=== PATIENT | female | born 1960 | race Caucasian/White ===

== ENCOUNTER 2021-07-31 05:44 | Emergency (ER) | payer OTHER, SELFPAY ==
[2021-07-31 05:53] VITALS: BP 166/87; PULSE 73; RESP 16; TEMP 36.4; O2SAT 95; BMI 34.9
--- NOTE | 2021-07-31 06:12 | XRR_ITS ---
PROCEDURE INFORMATION: Exam: XR Chest Exam date and time: 07/31/2021 6:22 AM Age: 60 years old Clinical indication: Chest pain/pressure. TECHNIQUE: Imaging protocol: XR of the chest. Views: 1 view. COMPARISON: No relevant prior studies available. FINDINGS: Lungs: There is bulging at the right hilum with fullness of the right hilum. No pulmonary consolidation. Pleural spaces: No pleural effusion. No pneumothorax. Heart/Mediastinum: The cardiac silhouette is prominent which may be exaggerated by AP technique. No gross evidence of pneumomediastinum. Vasculature: Tortuous aorta. Bones/joints: No gross fracture. XR/XR chest 1V portable [id number] IMPRESSION: 1. Bulging at the right hilum with fullness of the right hilum. Recommend CT chest with contrast further assess. 2. The cardiac silhouette is prominent which may be exaggerated by AP technique.
--- NOTE | 2021-07-31 06:12 | ECG_ITS ---
[facility] Test Date: 2021-07-31 Pat Name: Emilee Lim Department: Room: Gender: Female Peripatologist: : 1960 Requested By: Mikhail Schwab Order Number: [id number] Radha MD: Betito Gutiérrez M.D. Measurements Intervals [place] Rate: 73 P: 41 [place]: 159 QRS: 22 QRSD: 81 T: 41 QT: 362 QTc: 401 Interpretive Statements SINUS RHYTHM No previous ECG available for comparison Electronically Signed On 07-31-2021 9:23:26 CDT by Betito Gutiérrez M.D. [email or web address] MD/store/[id number] f
[2021-07-31 06:20] LABS: Basophils # 0.1 10^3/uL (0.0-0.1); Basophils % 0.8 %; Eosinophils # 0.3 10^3/uL (0.0-0.8); Eosinophils % 3.5 %; Hematocrit 45.8 % (37.0-47.0); Hemoglobin 15.3 g/dL (11.5-15.3); Lymphocytes # 2.6 10^3/uL (0.8-4.8); Lymphocytes % 32.7 %; Mean Corpuscular HGB Conc 33.4 g/dL (30.0-36.0); Mean Corpuscular Hemoglobin 28.9 pg (28.0-34.0); Mean Corpuscular Volume 86.6 fl (81-99); Mean Platelet Volume 8.8 fL (7.4-10.4); Monocytes # 0.6 10^3/uL (0.2-0.9); Monocytes % 7.6 %; Neutrophils # 4.36 10^3/uL (1.8-7.7); Neutrophils % 55.1 %; Nucleated Red Blood Cells % 0 %; Platelet Count 305 10^3/cmm (130-400); Red Blood Count 5.29 10^6/uL (4.1-5.3); Red Cell Distribution Width 12.9 % (12.1-15.1); White Blood Count 7.9 10^3/uL (4.0-10.0)
[2021-07-31 06:32] LABS: Troponin(5th) Baseline 6 ng/L (0-10)
[2021-07-31 06:38] LABS: Alanine Aminotransferase 17 U/L (0-33); Albumin Level 4.4 g/dL (3.5-5.2); Alkaline Phosphatase 87 IU/L (35-105); Anion Gap 13.6 (5-19); Aspartate Amino Transferase 19 U/L (0-32); Blood Urea Nitrogen 18 mg/dL (8-23); Carbon Dioxide 27 mmol/L (22-29); Chloride 101 mmol/L (98-107); Creatine Phosphokinase 88 U/L (26-192); Glomerular Filtration Rate 73.2 mL/min (90-130); Glucose 101 mg/dL (65-115); NT Pro B Type Natriuretic Pept 12 pg/mL (0-125); Osmolality Calculated 288 mOsm/kg (285-295); Potassium 3.6 mmol/L (3.5-5.1); Sodium 138 mmol/L (136-145); Total Bilirubin 0.3 mg/dL (0.15-1.2); Total Protein 7.4 g/dL (6.6-8.7)
[2021-07-31 07:13] VITALS: BP 128/87; PULSE 76; RESP 15; O2SAT 96
--- NOTE | 2021-07-31 07:31 | CTR_ITS ---
PROCEDURE INFORMATION: Exam: CTA Chest With Contrast Exam date and time: 07/31/2021 7:53 AM Age: 60 years old Clinical indication: Chest pain/pressure. TECHNIQUE: Imaging protocol: Computed tomographic angiography of the chest with contrast. 3D rendering (Not supervised by radiologist): MIP and/or 3D reconstructed images were created by the technologist. Radiation optimization: All CT scans at this facility use at least one of these dose optimization techniques: automated exposure control; mA and/or kV adjustment per patient size (includes targeted exams where dose is matched to clinical indication); or iterative reconstruction. Contrast material: OMNI 350; Contrast volume: 72 ml; Contrast route: INTRAVENOUS (IV); COMPARISON: CR (CHEST, ) 07/31/2021 6:22 AM RADIATION DOSE METRICS: Total DLP (mGy-cm): 552.93 FINDINGS: Pulmonary arteries: The main pulmonary artery is enlarged measuring 4 cm; query pulmonary arterial hypertension. Motion artifact compromises assessment for pulmonary embolus. No main, central or lobar pulmonary embolus. Aorta: No thoracic aortic aneurysm. No thoracic aortic dissection. Lungs: Mild bronchial wall thickening at the lung bases. Mild centrilobular emphysema. No pulmonary consolidation. There is mild scarring and/or atelectasis, bilaterally. Solid fissural nodule on the left measuring 2.6 mm (image 205). Separate small fissural nodule on the left measuring 2 mm (image 224). Pleural spaces: No pleural effusion. No pneumothorax. Heart: Heart is enlarged. No pericardial effusion. Lymph nodes: A right hilar lymph node measures 1.3 x 1.8 cm. A left hilar lymph node measures 1.3 x 1.5 cm. A subcarinal lymph node measures 1.0 x 1.4 cm. There are small calcified bilateral hilar lymph nodes. Diaphragm: No hiatal hernia. Upper abdomen: Intermediate density left renal lesion measuring 2.4 cm. This may represent a complex cyst. A periportal lymph node measures 1.5 x 1.0 cm. Bones/joints: No acute fracture is identified. Soft tissues: No subcutaneous soft tissue swelling. CT/CT angio chest PE protcl [id number] IMPRESSION: 1. Motion artifact compromises assessment for pulmonary embolus. No main, central or lobar pulmonary embolus. 2. No thoracic aortic aneurysm. No thoracic aortic dissection. 3. Mild peribronchial wall thickening; query viral infection/bronchitis, chronic bronchitis and/or asthma. 4. Solid fissural nodules measure up to 2.6 mm. As per Fleischner Society 2017 guidelines for follow-up and management of pulmonary nodules: For patients at low risk (minimal or absent history of smoking and of other known risk factors), no routine follow-up. For patient at high risk (history of smoking or of other known risk factors), recommend optional CT at 12 months. 5. Intermediate density left renal lesion. This may represent a complex cyst. Recommend nonemergent ultrasound to exclude a solid renal lesion. 6. Mild mediastinal, bilateral hilar and periportal lymphadenopathy. 7. Mild centrilobular emphysema. 8. Cardiomegaly. COMMENTS: Consistent with the [employer]'s Incidental Findings Committee white paper (J Am Chris Radiol 2018): Any incidental renal lesion less than 1 cm or classified as too small to characterize, or any incidental cystic renal lesion characterized as simple-appearing, is likely benign. No follow-up imaging is recommended for these lesions per consensus recommendations based on imaging criteria.
--- NOTE | 2021-07-31 07:32 | ED_ITS ---
HPI - Chest Pain General: Chief Complaint: Chest Pain Stated Complaint: chest pressure Time Seen by Provider: 07/31/21 06:12 Source: patient Mode of arrival: ambulatory Limitations: no limitations History of Present Illness: 60-year-old female states she is denies any cough denies any shortness of breath denies any fever denies any nausea or diaphoresis. Chest pain since 4:00 this morning. She states that started suddenly with a sharp pain in the center of her chest that also radiated to her back. She states she had a couple pains like this before and they have all resolved. States that this pain is improved and is currently 2 out of 10. Associated symptoms: Deny abdominal pain, dyspnea, fever(s), nausea or vomiting Review of Systems Const: Denies: fever(s), chills, body aches or change in appetite Eyes: Denies: blurry vision or eye discomfort ENMT: Denies: throat pain or dental pain Card: Reports: chest pain Resp: Denies: dyspnea GI: Denies: abdominal pain, nausea, vomiting or diarrhea : Denies: dysuria Musc: Denies: neck pain or back pain Skin/Breast: Denies: rash Neuro: Denies: headache(s) Psych: Denies: depression [place]/Lymph: Denies: easy bruising All/Imm: Denies: urticaria PFSH ED PFSH: Medical History Anxiety Fatigue Social History Smoking and tobacco status: former smoker Female Reproductive History: Spontaneous abortions: No Physical Exam Const: COMMON NORMALS: no acute distress, patient oriented x3 and healthy appearing HENMT: COMMON NORMALS: normocephalic and atraumatic HEAD & SCALP: normocephalic and atraumatic Eye: COMMON NORMALS: Equal, round and reactive pupils present and EOMs intact bilaterally PUPIL: Yes Equal, round and reactive pupils present Neck/C-Spine: COMMON NORMALS: full ROM and supple Chest: COMMONS NORMALS: normal inspection of the chest and normal palpation of entire chest wall Resp: COMMON NORMALS: normal respiratory effort, No retractions, No use of accessory muscles and clear to auscultation bilaterally AUSCULTATION: clear to auscultation bilaterally Cardio: COMMON NORMALS: regular rate, regular rhythm and No murmurs present (Cardio) RATE: regular rate RHYTHM: regular rhythm GI: COMMON NORMALS: Normal to inspection, nondistended, normoactive bowel sounds present, Soft to palpation, non-tender and no masses PALPATION: Yes Soft to palpation Extremity: COMMON NORMALS: normal to inspection and full ROM Neuro: COMMON NORMALS: patient oriented x3, moves all extremities and no focal motor deficits Psych: COMMON NORMALS: mental status grossly normal, Normal thought process present and cooperative THOUGHT PROCESS: Normal thought process present Skin: COMMON NORMALS: no rashes or lesions noted and no wounds GENERAL SKIN EXAM: no rashes or lesions noted Course Vital Signs: Vital signs: Vital Signs Temperature 97.5 F L 07/31/21 05:53 Pulse Rate 86 07/31/21 09:37 Respiratory Rate 20 H 07/31/21 09:37 Blood Pressure 123/77 07/31/21 09:37 Pulse Oximetry 94 07/31/21 09:37 MDM - Chest Pain Medical Decision Making Patient presents for chest pain is atypical in nature her troponins here are negative patient CT scan is negative as well. She feels improved has no pain here she is stable for discharge is to follow-up with PCP and return if worsening she understands and agrees to plan. Lab Data : 07/31/21 06:05 07/31/21 06:05 Radiology Impressions Chest X-Ray 07/31/21 06:12 IMPRESSION: 1. Bulging at the right hilum with fullness of the right hilum. Recommend CT chest with contrast further assess. 2. The cardiac silhouette is prominent which may be exaggerated by AP technique. Chest CTA 07/31/21 07:31 IMPRESSION: 1. Motion artifact compromises assessment for pulmonary embolus. No main, central or lobar pulmonary embolus. 2. No thoracic aortic aneurysm. No thoracic aortic dissection. 3. Mild peribronchial wall thickening; query viral infection/bronchitis, chronic bronchitis and/or asthma. 4. Solid fissural nodules measure up to 2.6 mm. As per Fleischner Society 2017 guidelines for follow-up and management of pulmonary nodules: For patients at low risk (minimal or absent history of smoking and of other known risk factors), no routine follow-up. For patient at high risk (history of smoking or of other known risk factors), recommend optional CT at 12 months. 5. Intermediate density left renal lesion. This may represent a complex cyst. Recommend nonemergent ultrasound to exclude a solid renal lesion. 6. Mild mediastinal, bilateral hilar and periportal lymphadenopathy. 7. Mild centrilobular emphysema. 8. Cardiomegaly. COMMENTS: Consistent with the [employer]'s Incidental Findings Committee white paper (J Am Chris Radiol 2018): Any incidental renal lesion less than 1 cm or classified as too small to characterize, or any incidental cystic renal lesion characterized as simple-appearing, is likely benign. No follow-up imaging is recommended for these lesions per consensus recommendations based on imaging criteria. Laboratory Results WBC 7.9 10^3/uL (4.0-10.0) 07/31/21 06:05 RBC 5.29 10^6/uL (4.1-5.3) 07/31/21 06:05 Hgb 15.3 g/dL (11.5-15.3) 07/31/21 06:05 Hct 45.8 % (37.0-47.0) 07/31/21 06:05 MCV 86.6 fl (81-99) 07/31/21 06:05 MCH 28.9 pg (28.0-34.0) 07/31/21 06:05 MCHC 33.4 g/dL (30.0-36.0) 07/31/21 06:05 RDW 12.9 % (12.1-15.1) 07/31/21 06:05 Plt Count 305 10^3/cmm (130-400) 07/31/21 06:05 MPV 8.8 fL (7.4-10.4) 07/31/21 06:05 Neut % (Auto) 55.1 % 07/31/21 06:05 Lymph % (Auto) 32.7 % 07/31/21 06:05 [place] % (Auto) 7.6 % 07/31/21 06:05 Eos % (Auto) 3.5 % 07/31/21 06:05 Baso % (Auto) 0.8 % 07/31/21 06:05 Neut # (Auto) 4.36 10^3/uL (1.8-7.7) 07/31/21 06:05 Lymph # (Auto) 2.6 10^3/uL (0.8-4.8) 07/31/21 06:05 [place] # (Auto) 0.6 10^3/uL (0.2-0.9) 07/31/21 06:05 Eos # (Auto) 0.3 10^3/uL (0.0-0.8) 07/31/21 06:05 Baso # (Auto) 0.1 10^3/uL (0.0-0.1) 07/31/21 06:05 Nucleated RBC % (auto) 0 % 07/31/21 06:05 Nucleated RBCs # 0.0 /100WBC 07/31/21 06:05 Sodium 138 mmol/L (136-145) 07/31/21 06:05 Potassium 3.6 mmol/L (3.5-5.1) 07/31/21 06:05 Chloride 101 mmol/L (98-107) 07/31/21 06:05 Carbon Dioxide 27 mmol/L (22-29) 07/31/21 06:05 Anion Gap 13.6 (5-19) 07/31/21 06:05 BUN 18 mg/dL (8-23) 07/31/21 06:05 Creatinine 0.8 mg/dL (0.5-0.9) 07/31/21 06:05 GFR Calculation 73.2 mL/min (90-130) L 07/31/21 06:05 Glucose 101 mg/dL (65-115) 07/31/21 06:05 Calculated Osmolality 288 mOsm/kg (285-295) 07/31/21 06:05 Calcium 9.0 mg/dL (8.5-10.5) 07/31/21 06:05 Total Bilirubin 0.3 mg/dL (0.15-1.2) 07/31/21 06:05 AST 19 U/L (0-32) 07/31/21 06:05 ALT 17 U/L (0-33) 07/31/21 06:05 Alkaline Phosphatase 87 IU/L (35-105) 07/31/21 06:05 Creatine Kinase 88 U/L (26-192) 07/31/21 06:05 Troponin T Baseline 6 ng/L (0-10) 07/31/21 06:05 Troponin T 120 Minute 6.00 ng/L (0-10) 07/31/21 08:19 Delta Troponin T 0 ABS# (0-10) 07/31/21 08:19 NT-Pro-B Natriuret Pep 12 pg/mL (0-125) 07/31/21 06:05 Total Protein 7.4 g/dL (6.6-8.7) 07/31/21 06:05 Albumin 4.4 g/dL (3.5-5.2) 07/31/21 06:05 Globulin 3.0 g/dL (1.3-4.6) 07/31/21 06:05 EKG Data EKG 1: I personally reviewed and interpreted this EKG as follows: EKG interpretation date: 07/31/21 EKG interpretation time: 05:57 Interpretation: nsr hr [address] or t wave abnormalities qrs 81 qtc 388 EKG 2: I personally reviewed and interpreted this EKG as follows: EKG interpretation date: 07/31/21 EKG interpretation time: 08:34 Interpretation: nsr hr [address] or t wave abnormalities qrs 78 qtc 375 Discharge Plan Discharge Patient Disposition: Home Clinical Impression: Chest pain Condition: Stable Prescriptions: No Action alprazolam [Xanax] 0.5 mg tablet 0.25 mg PO TID 0RF hydrochlorothiazide 12.5 mg tablet 12.5 mg PO DAILY 0RF multivitamin Tablet 1 tab PO DAILY 0RF magnesium 30 mg tablet 30 mg PO DAILY PRN0RF Discharge Orders: Discharge ED (Routine); Ordered 07/31/21 Ordered By: Miky Lopez Referrals: Betito Gutiérrez MD [Physician] - 1-3 days Discharge Diet: Advance as tolerated Discharge Activity: Resume usual activity Patient Instructions: Chest Pain (ED) Coding Level of Care Code ED Ballast Regulator Operator for Chg Fwd Exam Comprehensive
[2021-07-31] MEDS: iohexol 350 mg/mL 100 mL Btl IV (07:53)
[2021-07-31 08:00] VITALS: BP 134/75; PULSE 81; RESP 17; O2SAT 95
--- NOTE | 2021-07-31 08:12 | ECG_ITS ---
[facility] Test Date: 2021-07-31 Pat Name: Emilee Lim Department: Room: Gender: Female Jr. Java Developer: : 1960 Requested By: Mikhail Schwab Order Number: [id number] Radha MD: Betito Gutiérrez M.D. Measurements Intervals [place] Rate: 72 P: 60 [place]: 165 QRS: 43 QRSD: 78 T: 49 QT: 351 QTc: 385 Interpretive Statements SINUS RHYTHM Compared to ECG 07/31/2021 05:57:51 No significant changes Electronically Signed On 07-31-2021 9:30:44 CDT by Betito Gutiérrez M.D. [id number]
--- NOTE | 2021-07-31 08:33 | PC.NURSE ---
PT placed on continuous NIBP, SpO2, and CM
--- NOTE | 2021-07-31 08:37 | PC.NURSE ---
EKG done at 0835 and shown to ER doctor
[2021-07-31 09:00] VITALS: BP 123/77; PULSE 82; RESP 14; O2SAT 92
[2021-07-31 09:21] LABS: Troponin 5 2HR Delta 0 ABS# (0-10)
[2021-07-31 09:37] VITALS: BP 123/77; PULSE 86; RESP 20; O2SAT 94
--- NOTE | 2021-08-01 13:37 | DCPLANNER ---
Addendum entered by Sandra Wyatt 08/04/21 15:28: Patient had a follow up appointment scheduled for 08.03.[address] Mcclure - patient did attend appointment. Dr. Gutiérrez is not taking new patients. Original Note: patient manager had message to schedule a follow up appointment for patient with cardiology. patient manager sent patients information to the front office staff at [facility]. Patients information will be printed and reviewed. Clinic will call patient with appointment information.
== END 2021-07-31 09:39 | disposition home or self-care (01) ==
PROVIDERS: Emergency Medicine; Emergency Provider Emergency Medicine
DX: R07.9 Chest pain, unspecified (principal)
CPT/HCPCS: 36415; 71045; 71275; 80053; 82550; 83880; 84484; 85025; 93005; 99284; Q9967

== ENCOUNTER → 2022-04-07 17:10 | Outpatient (BNVA) | payer OTHER, SELFPAY | PROVIDERS: Visit Provider Nurse Practitioner Family | DX: N39.41 Urge incontinence (principal); R00.0 Tachycardia, unspecified; R69 Illness, unspecified; N10 Acute pyelonephritis | CPT/HCPCS: 81000; 87400 ==

== ENCOUNTER → 2022-04-14 14:18 | Outpatient (BNVA) | payer OTHER, SELFPAY | PROVIDERS: Visit Provider Emergency Medicine | DX: N30.00 Acute cystitis without hematuria (principal); J98.8 Other specified respiratory disorders; B97.89 Other viral agents as the cause of diseases classified elsewhere | CPT/HCPCS: 81000; 87086 ==

== ENCOUNTER → 2022-07-31 17:28 | Outpatient (BNVA) | payer OTHER, SELFPAY | PROVIDERS: Visit Provider Nurse Practitioner Family | DX: N39.0 Urinary tract infection, site not specified (principal); R35.89 Other polyuria; N12 Tubulo-interstitial nephritis, not specified as acute or chronic | CPT/HCPCS: 81000; 83036; 87086 ==

== ENCOUNTER → 2023-11-15 08:45 | Outpatient (BNVA) | payer OTHER, SELFPAY | PROVIDERS: Visit Provider Nurse Practitioner | DX: N39.0 Urinary tract infection, site not specified (principal); R30.0 Dysuria | CPT/HCPCS: 81000; 87086 ==

== ENCOUNTER 2024-05-05 12:05 | Emergency (ER) | payer OTHER, SELFPAY ==
[2024-05-05] VITALS (38 sets, daily range): BP systolic 123–152; BP diastolic 74–103; PULSE 96–109; RESP 12–28; TEMP 36.3; O2SAT 89–97; BMI 42.7
--- NOTE | 2024-05-05 12:14 | ECG_ITS ---
[facility] Pat Name: Emilee Lim Department: Room: Gender: Female Account Development Specialist: : 1960 Requested By: Emmy Pereira Order Number: [id number] Reading MD: CLAU RODRIGUEZ Measurements Intervals [place] Rate: 109 P: 35 TN: 155 QRS: 19 QRSD: 79 T: 49 QT: 327 QTc: 442 Interpretive Statements SINUS TACHYCARDIA WITH OCCASIONAL ECTOPIC PREMATURE COMPLEXES POSSIBLE LEFT ATRIAL ENLARGEMENT [-0.1mV P-WAVE IN V1/V2] LOW QRS VOLTAGE IN PRECORDIAL LEADS [QRS DEFLECTION < 1.0 mV IN CHEST LEADS] POSSIBLE ANTERIOR MYOCARDIAL INFARCTION , OF INDETERMINATE AGE [30 ms Q WAVE IN V3/V4, OR R < 0.2 mV IN V4] Compared to ECG 07/31/2021 08:34:53 Low QRS voltage now present Myocardial infarct finding now present Sinus rhythm no longer present Electronically Signed On 05-05-2024 22:20:47 CDT by CLAU RODRIGUEZ [id number]
--- NOTE | 2024-05-05 13:42 | W.ED.ABDPA2 ---
HPI - Abdominal Pain General: Chief Complaint: Abdominal Pain Stated Complaint: rapid hr,shoulder pain,abd pain Time Seen by Provider: 05/05/24 13:01 Source: patient Mode of arrival: wheelchair Limitations: no limitations History of Present Illness: 63-year-old female presents to the ER complaining of abdominal pain, nausea, vomiting. Patient states she started having episodes of vomiting with bile last night and has unable to keep down any foods or liquids. She states she has been dealing with GI issues for the past 10 years now and will get stomach discomforts after eating certain foods but not the nausea/vomiting. She describes frequent episodes at night lasting 30 mins or so. Previous abdominal surgeries include uterine ablation, open exploratory surgery with appendectomy. She reports having palpitations last night while sleeping which has improved today. Patient reports pain radiating to back/shoulder blades. Has had one episode previously of idiopathic pancreatitis. Patient reports she has not taking her blood pressure medications yesterday or today. Patient denies fever, chills, dizziness, chest pain, shortness of breath. Denies excessive etoh/NSAIDs. Denies marijuana use. MD elicited complaint: abdominal pain Onset (ago): day(s) Pain Consistency: constant Location: Epigastric, LUQ and RUQ Severity: moderate Quality: dull Radiation: epigastric Exacerbating factors: eating Relieving factors: nothing Associated Symptoms: Reports dyspepsia, heartburn, nausea, poor appetite and vomiting ( Bile like vomit ); Denies change in bowel habits, chills, constipation, GI cramping, diarrhea, fever(s), hematochezia, hematuria, hematemesis and syncope Related Data Home Medications ?Medication ?Instructions ?Recorded ?Confirmed hydrochlorothiazide 12.5 mg tablet 12.5 mg PO DAILY 07/12/21 05/05/24 multivitamin 1 tab PO DAILY 07/12/21 05/05/24 cyanocobalamin 2 mg-levomefolate 1 tab PO DAILY 05/05/24 05/05/24 [place] 1.13 mg-pyridoxine 25 mg tablet trospium 60 mg capsule,extended 60 mg PO DAILY 05/05/24 05/05/24 release 24 hr Previous Rx's ?Medication ?Instructions ?Recorded ondansetron 4 mg disintegrating 4 mg PO Q8H PRN nausea and 05/05/24 tablet vomiting #14 tabs pantoprazole 40 mg tablet,delayed 40 mg PO DAILY 4 weeks #28 tabs 05/05/24 release (Protonix) sucralfate 1 gram tablet (Carafate) 1 g PO TID 2 weeks #42 tabs 05/05/24 Allergies Allergy/AdvReac Type Severity Reaction Status Date / Time montelukast (From [facility]) Allergy unnknow Verified 05/05/24 12:20 Penicillins Allergy Unknown Verified 05/05/24 12:20 antibiotics Allergy Unknown Uncoded 05/05/24 12:20 antidepressants Allergy Unknown Uncoded 05/05/24 12:20 steroid packs Allergy Unknown Uncoded 05/05/24 12:20 Review of Systems Const: Reports: change in appetite (Decrease in appetite); Denies: fever(s), chills or body aches Eyes: Denies: change in vision or blurry vision Card: Reports: palpitations; Denies: chest pain, irregular heart rhythm, edema, swelling of feet/ankles, lightheadedness, syncope, pre-syncope, dyspnea on exertion or orthopnea Resp: Denies: dyspnea, productive cough, non-productive cough or wheezing GI: Reports: abdominal pain, nausea, vomiting ( Bile like vomit ) and heartburn; Denies: hematemesis, diarrhea, constipation, GI cramping, change in bowel habits, pain on defecation or hematochezia : Denies: flank pain or hematuria Musc: Reports: back pain ( Pain between my shoulder blades ); Denies: neck pain, extremity pain, extremity swelling, joint pain, joint swelling, joint redness, joint warmth, joint stiffness, limited range of motion, muscle cramps or muscle weakness Skin/Breast: Denies: rash Neuro: Denies: headache(s) or dizziness PFS ED PFSH: Medical History Anxiety Fatigue Family History Mother Anesthesia complication Lung disease Father Bleeding disorder CAD (coronary artery disease) Diabetes Family/Other CAD (coronary artery disease) Cancer Chronic kidney disease (CKD) Stroke Suicide Diabetes Grandfather Dementia Denies family history of Clotting disorder Social History Smoking and tobacco/nicotine status: former use of tobacco/nicotine (quit 20 years ago) Female Reproductive History: Spontaneous abortions: No Physical Exam Const: COMMON NORMALS: no acute distress, average body habitus, patient oriented x3, no limitations, healthy appearing, alert and well nourished GENERAL APPEARANCE: cooperative ORIENTATION/CONSCIOUSNESS: Yes awake, Yes oriented to person, Yes oriented to place and Yes oriented to time Eye: COMMON NORMALS: no scleral icterus Neck/C-Spine: COMMON NORMALS: no lymphadenopathy Resp: COMMON NORMALS: clear to auscultation bilaterally EFFORT & INSPECTION: Yes able to speak in complete sentences AUSCULTATION: clear to auscultation bilaterally Cardio: COMMON NORMALS: regular rate and regular rhythm RATE: regular rate RHYTHM: regular rhythm GI: COMMON NORMALS: Normal to inspection, nondistended, normoactive bowel sounds present, Soft to palpation, No hepatosplenomegaly present and no masses INSPECTION: Yes normal to inspection AUSCULTATION: Yes Hypoactive bowel sounds present PALPATION: Yes Soft to palpation, Yes Tenderness to palpation present (GI) (tenderness across upper abdomen ) Details: RUQ, No Guarding due to palpation present (GI), No Rigid due to palpation and Yes No hepatosplenomegaly present : COMMON NORMALS: Yes no CVA tenderness BLADDER/KIDNEY EXAM: Yes no CVA tenderness Back/Pelvis: COMMON NORMALS: no CVA tenderness Extremity: COMMON NORMALS: normal to inspection, full ROM and no joint enlargement Neuro: COMMON NORMALS: patient oriented x3 SENSORIUM/ORIENTATION: Yes alert, Yes oriented to person, Yes oriented to place and Yes oriented to time Skin: COMMON NORMALS: no rashes or lesions noted GENERAL SKIN EXAM: no rashes or lesions noted Course Vital Signs: Vital signs: Vital Signs Temperature 97.3 F L 05/05/24 12:09 Pulse Rate 105 H 05/05/24 15:45 Respiratory Rate 16 05/05/24 15:45 Blood Pressure 130/85 05/05/24 15:45 Pulse Oximetry 97 05/05/24 15:45 Oxygen Delivery Me thod Room Air 05/05/24 14:05 MDM - Abdominal Pain Medical Decision Making Patient here for abdominal pain, nausea, vomiting. Patient was given antiemetic here and successfully held down a GI cocktail as well as ice chips, Sprite, and crackers following this. She has not had any episodes of vomiting while here. Blood work showing hypokalemia at 2.7. She was given IV and oral potassium replacement here. Her magnesium is 2.5. Recommending she have potassium rechecked outpatient later this week. CT scan findings compatible with a nonspecific gastritis or peptic ulcer disease. I will have case management set her up with outpatient GI/general surgery for evaluation for an endoscopy. She will be placed on Carafate, PPI, Zofran for her nausea and vomiting. She was encouraged to return to the emergency department for worsening pain, continued nausea or vomiting, or any other concerns she may have. Did discuss dietary restrictions and provided handouts. Medical Records I reviewed the patient's medical records. Lab Data I reviewed the patient's lab results. 05/05/24 13:33 05/05/24 13:33 Labs/Radiology: Radiology Impressions Abdomen/Pelvis CT 05/05/24 14:05 IMPRESSION: 1. Findings compatible with a nonspecific gastritis or peptic ulcer disease. Consider follow-up outpatient GI evaluation/endoscopy to exclude an underlying lesion. Laboratory Results WBC 15.22 10^3/uL (3.29-11.43) H 05/05/24 13:33 RBC 6.30 10^6/uL (3.85-5.65) H 05/05/24 13:33 Hgb 17.50 g/dL (11.27-16.99) H 05/05/24 13:33 Hct 53.2 % (36-47) H 05/05/24 13:33 MCV 84.4 fl (85-98) L 05/05/24 13:33 MCH 27.8 pg (27-33) 05/05/24 13:33 MCHC 32.9 g/dL (30-55) 05/05/24 13:33 RDW 13.2 % (12.1-15.1) 05/05/24 13:33 Plt Count 388 10^3/cmm (157-399) 05/05/24 13:33 MPV 8.8 fL (7.4-10.4) 05/05/24 13:33 Neut % (Auto) 82.3 % 05/05/24 13:33 Lymph % (Auto) 10.6 % 05/05/24 13:33 [place] % (Auto) 6.4 % 05/05/24 13:33 Eos % (Auto) 0.1 % 05/05/24 13:33 Baso % (Auto) 0.2 % 05/05/24 13:33 Neut # (Auto) 12.53 10^3/uL (1.8-7.7) H 05/05/24 13:33 Lymph # (Auto) 1.6 10^3/uL (0.8-4.8) 05/05/24 13:33 [place] # (Auto) 1.0 10^3/uL (0.2-0.9) H 05/05/24 13:33 Eos # (Auto) 0.0 10^3/uL (0.0-0.8) 05/05/24 13:33 Baso # (Auto) 0.0 10^3/uL (0.0-0.1) 05/05/24 13:33 Nucleated RBC % (auto) 0 % 05/05/24 13:33 Nucleated RBCs # 0.0 /100WBC 05/05/24 13:33 Sodium 140 mmol/L (136-145) 05/05/24 13:33 Potassium 2.7 mmol/L (3.5-5.1) L* 05/05/24 13:33 Chloride 86 mmol/L (98-107) L 05/05/24 13:33 Carbon Dioxide 38 mmol/L (22-29) H 05/05/24 13:33 Anion Gap 18.7 (5-19) 05/05/24 13:33 BUN 38 mg/dL (8-23) H 05/05/24 13:33 Creatinine 1.0 mg/dL (0.5-0.9) H 05/05/24 13:33 GFR Calculation 56.0 mL/min (90-130) L 05/05/24 13:33 Glucose 136 mg/dL (65-115) H 05/05/24 13:33 Calculated Osmolality 301 mOsm/kg (285-295) H 05/05/24 13:33 Calcium 9.8 mg/dL (8.5-10.5) 05/05/24 13:33 Magnesium 2.5 mg/dL (1.7-2.3) H 05/05/24 13:33 Total Bilirubin 0.5 mg/dL (0.15-1.2) 05/05/24 13:33 AST 17 U/L (0-32) 05/05/24 13:33 ALT 19 U/L (0-33) 05/05/24 13:33 Alkaline Phosphatase 103 U/L (35-105) 05/05/24 13:33 Troponin T Baseline 10 ng/L (0-10) 05/05/24 13:33 Total Protein 8.4 g/dL (6.6-8.7) 05/05/24 13:33 Albumin 4.7 g/dL (3.5-5.2) 05/05/24 13:33 Globulin 3.7 g/dL (1.3-4.6) 05/05/24 13:33 Lipase 38 U/L (13-60) 05/05/24 13:33 Urine Color Dark yellow (Yellow) A 05/05/24 13:30 Urine Appearance Slightly cloudy (CLEAR) 05/05/24 13:30 Urine pH (5-7) 05/05/24 13:30 Ur Specific [place] Not Reportable 05/05/24 13:30 Urine Protein Not Reportable 05/05/24 13:30 Urine Glucose (UA) Not Reportable 05/05/24 13:30 Urine Ketones Not Reportable 05/05/24 13:30 Urine Blood Not Reportable 05/05/24 13:30 Urine Nitrate Not Reportable 05/05/24 13:30 Urine Bilirubin Not Reportable 05/05/24 13:30 Urine Urobilinogen Not Reportable 05/05/24 13:30 Ur Leukocyte Esterase Not Reportable 05/05/24 13:30 Urine RBC None /hpf (0-2) 05/05/24 13:30 Urine WBC 0-4 /hpf (0-5) H 05/05/24 13:30 Ur Squamous Epith Cells 0-4 /hpf (0-5) H 05/05/24 13:30 Amorphous Sediment Not Reportable 05/05/24 13:30 Urine Bacteria Trace /hpf (NONE) 05/05/24 13:30 Hyaline Casts 10-15 /lpf H 05/05/24 13:30 Urine Mucus 1+ /hpf 05/05/24 13:30 All radiology interpretation(s) finalized by discharge Discharge Plan Discharge Patient Disposition: Home Clinical Impression: Hypokalemia Gastritis Qualifiers: Gastritis type: unspecified gastritis Chronicity: acute Gastritis bleeding: without bleeding Qualified Code(s): K29.00 - Acute gastritis without bleeding Condition: Stable Prescriptions: New sucralfate [Carafate] 1 gram tablet 1 g PO TID 14 Days Qty: 42 0RF pantoprazole [Protonix] 40 mg tablet,delayed release (DR/EC) 40 mg PO DAILY 28 Days Qty: 28 0RF ondansetron 4 mg tablet,disintegrating 4 mg PO Q8H PRN (Reason: nausea and vomiting) Qty: 14 0RF No Action hydrochlorothiazide 12.5 mg tablet 12.5 mg PO DAILY multivitamin Tablet 1 tab PO DAILY trospium 60 mg Capsule,Extended Release 24hr 60 mg PO DAILY Rx Instructions: must be taken on empty stomach at least 1 hour before a meal/food with water only [id number] calcium-B6 2-1.13-25 mg Tablet 1 tab PO DAILY Discharge Orders: Discharge ED (Routine); Ordered 05/05/24 Ordered By: Emmy Pereira Patient Instructions: Peptic Ulcer (ED), Gastritis (DC), Diet for Stomach Ulcers and Gastritis (ED) Activity Restrictions/Additional Instructions: As we discussed, case management should reach out to you shortly to help set you up with a follow-up appointment with GI/general surgery for further evaluation for an endoscopy for further evaluation of your upper abdominal pain. You were given IV and PO potassium replacement. This needs to be rechecked with your primary care later this week. You were given dietary instructions for gastritis-attached to your discharge paperwork. You need to return to the emergency department for continued episodes of nausea and vomiting, inability to hold food or liquids down, generally feeling worse or unwell, worsening abdominal pain, black or tarry stools, or any other concerns you may have. Print Language: Wolof Coding Level of Care Code ED Distribution Analyst for Kai Clarke
[2024-05-05 13:44] LABS: Basophils % 0.2 %; Eosinophils % 0.1 %; Hematocrit 53.2 % (36-47); Lymphocytes # 1.6 10^3/uL (0.8-4.8); Lymphocytes % 10.6 %; Mean Corpuscular HGB Conc 32.9 g/dL (30-55); Mean Corpuscular Hemoglobin 27.8 pg (27-33); Mean Corpuscular Volume 84.4 fl (85-98); Mean Platelet Volume 8.8 fL (7.4-10.4); Monocytes % 6.4 %; Neutrophils # 12.53 10^3/uL (1.8-7.7); Neutrophils % 82.3 %; Nucleated Red Blood Cells % 0 %; Platelet Count 388 10^3/cmm (157-399); Red Cell Distribution Width 13.2 % (12.1-15.1); White Blood Count 15.22 10^3/uL (3.29-11.43)
[2024-05-05 13:50] LABS: Add Urine Microscopic? YES; Urine Appearance Slightly Cloudy (CLEAR); Urine Color Dark Yellow (Yellow)
[2024-05-05 13:53] LABS: Bacteria Urine TRACE /hpf; Squamous Epithelial Cell Urine 0-4 /hpf (0-5); WBC Urine 0-4 /hpf (0-5)
[2024-05-05 13:54] LABS: Add Urine Culture? No; Mucus Urine 1+ /hpf
[2024-05-05 14:05] LABS: Alanine Aminotransferase 19 U/L (0-33); Albumin Level 4.7 g/dL (3.5-5.2); Alkaline Phosphatase 103 U/L (35-105); Anion Gap 18.7 (5-19); Aspartate Amino Transferase 17 U/L (0-32); Blood Urea Nitrogen 38 mg/dL (8-23); Calcium 9.8 mg/dL (8.5-10.5); Carbon Dioxide 38 mmol/L (22-29); Chloride 86 mmol/L (98-107); Creatinine Clr Calc Pharmacy 60.9365; Globulin 3.7 g/dL (1.3-4.6); Glucose 136 mg/dL (65-115); Lipase 38 U/L (13-60); Osmolality Calculated 301 mOsm/kg (285-295); Sodium 140 mmol/L (136-145); Total Bilirubin 0.5 mg/dL (0.15-1.2); Total Protein 8.4 g/dL (6.6-8.7)
--- NOTE | 2024-05-05 14:05 | CTR_ITS ---
PROCEDURE INFORMATION: Exam: CT Abdomen And Pelvis With Contrast Exam date and time: 05/05/2024 2:44 PM Age: 63 years old Clinical indication: Abdominal pain; Localized; Upper; Additional info: Upper abdominal pain, n/v TECHNIQUE: Imaging protocol: Computed tomography of the abdomen and pelvis with contrast. Radiation optimization: All CT scans at this facility use at least one of these dose optimization techniques: automated exposure control; mA and/or kV adjustment per patient size (includes targeted exams where dose is matched to clinical indication); or iterative reconstruction. Contrast material: OMNI 350; Contrast volume: 100 ml; Contrast route: INTRAVENOUS (IV); COMPARISON: CT angio chest PE protcl [id number] 07/31/2021 7:53 AM RADIATION DOSE METRICS: Total DLP (mGy-cm): 940.13 FINDINGS: Lungs: Subsegmental bibasilar atelectasis. The visualized lung bases are otherwise grossly clear. Diaphragm: No evidence of diaphragmatic defect. Liver: Hepatic steatosis. No evidence of focal hepatic lesion. Gallbladder and biliary ducts: Unremarkable. No intra-hepatic or extra-hepatic biliary dilatation. Pancreas: Unremarkable. Spleen: Unremarkable. Adrenal glands: Unremarkable. Kidneys and ureters: There is a simple appearing left-sided renal cyst for which dedicated imaging follow-up is not required. Otherwise no evidence of renal parenchymal abnormality. No hydronephrosis or ureteral stone. Stomach and bowel: No evidence of bowel obstruction. There is gastric wall thickening, particularly of the antrum/pylorus compatible with a nonspecific gastritis versus peptic ulcer disease in the proper clinical setting. There are few reactive adjacent nodes. Appendix: The appendix is not visualized, however there are no findings to suggest appendicitis. Intraperitoneal space: No evidence of free air or fluid collection. Vasculature: No aneurysmal dilatation or dissection of the abdominal aorta. The celiac trunk, SMA and MIRYAM are grossly patent. No evidence of IVC thrombus. The portal vein, SMV and splenic veins are grossly patent. Lymph nodes: No adenopathy. Few reactive nodes in the region of the gastric antrum/pylorus. Urinary bladder: Grossly unremarkable. Reproductive: Grossly unremarkable. Bones/joints: No evidence of acute fracture or aggressive osseous lesion. Moderate multilevel spondylosis of the lumbar spine with facet arthrosis and osteophytosis. Moderate L4-L5 central stenosis. Soft tissues: No evidence of fluid collection or hematoma in the superficial soft tissues. CT/CT abdomen pelvis w con* [id number] IMPRESSION: 1. Findings compatible with a nonspecific gastritis or peptic ulcer disease. Consider follow-up outpatient GI evaluation/endoscopy to exclude an underlying lesion.
[2024-05-05 14:11] LABS: Potassium 2.7 mmol/L (3.5-5.1)
[2024-05-05] MEDS: ondansetron 2 mg/ML SDV 2 mL 4 MG IVP (14:12)
[2024-05-05 14:26] LABS: Troponin(5th) Baseline 10 ng/L (0-10)
[2024-05-05] MEDS: lidocaine 2% viscous 15 ML, aluminum-mag hydrox-simethicon 30 ML, sucralfate oral liq 1 GM PO (14:30)
[2024-05-05] MEDS: sodium chloride 0.9% 1,000 ML 999 ML IV (14:33)
[2024-05-05] MEDS: lidocaine 1% 5 ML in potassium chloride premix 100 ML 52.5 ML IV (14:35)
[2024-05-05 14:43] LABS: Magnesium 2.5 mg/dL (1.7-2.3)
[2024-05-05] MEDS: iohexol 350 mg/mL 500 mL Btl (per mL) IV (14:46)
[2024-05-05] MEDS: potassium chloride oral liq 20 mEq/15 mL UDC 40 MEQ PO (15:04)
[2024-05-05 16:33] LABS: Troponin 5 2HR 8.67 ng/L (0-10)
[2024-05-05 16:36] LABS: Troponin 5 2HR Delta -1.33 ABS# (0-10)
--- NOTE | 2024-05-07 17:37 | DCPLANNER ---
Message sent to General Surg for follow up
== END 2024-05-05 17:08 | disposition home or self-care (01) ==
PROVIDERS: Emergency Medicine; Emergency Provider Physician Assistant
DX: K29.00 Acute gastritis without bleeding (principal); Z87.891 Personal history of nicotine dependence
CPT/HCPCS: 36415; 74177; 80053; 81001; 83690; 83735; 84484; 85025; 93005; 96374; 96375; 99285; J2405; J3480; J7030

== ENCOUNTER 2024-05-12 10:17 | Emergency (ER) | payer OTHER, SELFPAY ==
[2024-05-12 10:26] VITALS: BP 125/73; PULSE 97; TEMP 36.6; O2SAT 95; BMI 42.7
--- NOTE | 2024-05-12 10:31 | ECG_ITS ---
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: : [id number] Requested By: Seymour Butt Order Number: [id number] Reading MD: CLAU RODRIGUEZ Measurements Intervals [place] Rate: 91 P: 32 FL: 154 QRS: 18 QRSD: 81 T: 39 QT: 296 QTc: 365 Interpretive Statements SINUS RHYTHM LOW QRS VOLTAGE IN PRECORDIAL LEADS [QRS DEFLECTION < 1.0 mV IN CHEST LEADS] POSSIBLE ANTERIOR MYOCARDIAL INFARCTION , PROBABLY OLD [30 ms Q WAVE IN V3/V4, OR R < 0.2 mV IN V4] Compared to ECG 05/05/2024 12:14:51 Sinus tachycardia no longer present Myocardial infarct finding still present Electronically Signed On 05-12-2024 18:07:33 CDT by CLAU RODRIGUEZ [email or web address]
[2024-05-12 10:52] LABS: Basophils # 0.1 10^3/uL (0.0-0.1); Basophils % 0.4 %; Eosinophils # 0.1 10^3/uL (0.0-0.8); Lymphocytes # 3.8 10^3/uL (0.8-4.8); Lymphocytes % 30.7 %; Mean Corpuscular Hemoglobin 28.2 pg (27-33); Mean Corpuscular Volume 85.6 fl (85-98); Mean Platelet Volume 8.4 fL (7.4-10.4); Monocytes # 0.7 10^3/uL (0.2-0.9); Monocytes % 5.8 %; Neutrophils # 7.69 10^3/uL (1.8-7.7); Neutrophils % 61.6 %; Nucleated Red Blood Cells % 0 %; Platelet Count 349 10^3/cmm (157-399); Red Blood Count 5.14 10^6/uL (3.85-5.65); Red Cell Distribution Width 12.5 % (12.1-15.1); White Blood Count 12.47 10^3/uL (3.29-11.43)
[2024-05-12 10:59] VITALS: BP 145/78; PULSE 95; RESP 16; O2SAT 100
--- NOTE | 2024-05-12 11:02 | US_ITS ---
WS: [id number] ULTRASOUND ABDOMEN LIMITED CLINICAL INFORMATION: ruq pain COMPARISON: None. FINDINGS: Liver Size: Enlarged Craniocaudal length: 17.8 cm. Echogenicity: Fatty Surface nodularity: None. Mass (size and location): None. Bile ducts Intrahepatic ducts: Normal. Common bile duct diameter: 0.3 cm. Gallbladder Normal. Gallstones: None. Gallbladder sludge: None. Gallbladder wall thickening: None. Pericholecystic fluid: None. Sonographic Dudley sign: Absent. Pancreas Normal as visualized. Right kidney: Normal. Hydronephrosis: None. Size: 11.1 cm x 5.1 cm x 4.5 cm. Abdominal aorta and IVC Visualized portions are normal. Ascites: None. US/US gall bladder [id number] IMPRESSION: 1. Hepatomegaly with steatosis 2. Normal gallbladder and common bile duct. 3. No other acute findings
--- NOTE | 2024-05-12 11:03 | W.ED.RECABL ---
HPI - Recheck/Abnormal Lab/Rx General: Chief Complaint: Recheck/Abnormal Lab/Rx Stated Complaint: [facility] sent for potassium Time Seen by Provider: 05/12/24 11:00 Source: patient Mode of arrival: ambulatory Limitations: no limitations History of Present Illness: 63-year-old female seen here a week ago she was diagnosed with a gastritis states she has been having vomiting states that the vomiting is improved when she was here she had a potassium of 2.7 she states she had it rechecked and it was 2.9 and the patient had a checked and sent her here states she still having some slight epigastric and right upper quadrant pain she denies any fever she denies any worsening proving factors Related Data Home Medications ?Medication ?Instructions ?Recorded ?Confirmed hydrochlorothiazide 12.5 mg tablet 12.5 mg PO DAILY 07/12/21 05/12/24 multivitamin 1 tab PO DAILY 07/12/21 05/12/24 cyanocobalamin 2 mg-levomefolate 1 tab PO DAILY 05/05/24 05/12/24 [place] 1.13 mg-pyridoxine 25 mg tablet trospium 60 mg capsule,extended 60 mg PO DAILY 05/05/24 05/12/24 release 24 hr Previous Rx's ?Medication ?Instructions ?Recorded ondansetron 4 mg disintegrating 4 mg PO Q8H PRN nausea and 05/05/24 tablet vomiting #14 tabs pantoprazole 40 mg tablet,delayed 40 mg PO DAILY 4 weeks #28 tabs 05/05/24 release (Protonix) sucralfate 1 gram tablet (Carafate) 1 g PO TID 2 weeks #42 tabs 05/05/24 Allergies Allergy/AdvReac Type Severity Reaction Status Date / Time montelukast (From [facility]) Allergy unnknow Verified 05/12/24 10:32 Penicillins Allergy Unknown Verified 05/12/24 10:32 antibiotics Allergy Unknown Uncoded 05/12/24 10:32 antidepressants Allergy Unknown Uncoded 05/12/24 10:32 steroid packs Allergy Unknown Uncoded 05/12/24 10:32 Review of Systems Const: Reports: fatigue; Denies: fever(s), chills, body aches or change in appetite ENMT: Denies: throat pain or dental pain Card: Denies: chest pain Resp: Denies: dyspnea GI: Reports: abdominal pain, nausea and diarrhea; Denies: vomiting : Denies: dysuria Musc: Denies: neck pain or back pain Skin/Breast: Denies: rash Neuro: Denies: headache(s) PFSH ED PFSH: Medical History Anxiety Fatigue Family History Mother Anesthesia complication Lung disease Father Bleeding disorder CAD (coronary artery disease) Diabetes Family/Other CAD (coronary artery disease) Cancer Chronic kidney disease (CKD) Stroke Suicide Diabetes Grandfather Dementia Denies family history of Clotting disorder Social History Smoking and tobacco/nicotine status: former use of tobacco/nicotine (quit 20 years ago) Female Reproductive History: Spontaneous abortions: No Physical Exam Const: COMMON NORMALS: no acute distress, patient oriented x3 and healthy appearing Eye: COMMON NORMALS: Equal, round and reactive pupils present and EOMs intact bilaterally PUPIL: Yes Equal, round and reactive pupils present Neck/C-Spine: COMMON NORMALS: full ROM and supple Chest: COMMONS NORMALS: normal inspection of the chest Resp: COMMON NORMALS: normal respiratory effort, No retractions, No use of accessory muscles and clear to auscultation bilaterally AUSCULTATION: clear to auscultation bilaterally Cardio: COMMON NORMALS: regular rate, regular rhythm and No murmurs present (Cardio) RATE: regular rate RHYTHM: regular rhythm GI: COMMON NORMALS: Normal to inspection, nondistended, normoactive bowel sounds present, Soft to palpation, non-tender and no masses PALPATION: Yes Soft to palpation Extremity: COMMON NORMALS: normal to inspection and full ROM Neuro: COMMON NORMALS: patient oriented x3, moves all extremities and no focal motor deficits Psych: COMMON NORMALS: mental status grossly normal, Normal thought process present and cooperative THOUGHT PROCESS: Normal thought process present Skin: COMMON NORMALS: no rashes or lesions noted and no wounds GENERAL SKIN EXAM: no rashes or lesions noted Course Vital Signs: Vital signs: Vital Signs Temperature 97.9 F 05/12/24 10:26 Pulse Rate 86 05/12/24 12:00 Respiratory Rate 16 05/12/24 10:59 Blood Pressure 141/74 05/12/24 12:00 Pulse Oximetry 99 05/12/24 12:00 Oxygen Delivery Me thod Room Air 05/12/24 12:00 MDM - Recheck/Abnormal Lab/Rx Medical Decision Making Patient presents here with concern for hypokalemia her potassium here is 3.1 she still having some epigastric pain her CT last week showed a gastritis her blood work here is otherwise normal exam is benign ultrasound gallbladder showed no acute abnormalities we will put in another referral for surgery as she does need a EGD in the future return if worsening she understands agrees plan Medical Records I reviewed the patient's medical records. Lab Data I reviewed the patient's lab results. 05/12/24 10:42 05/12/24 10:42 Radiology Impressions Gallbladder Ultrasound 05/12/24 11:02 IMPRESSION: 1. Hepatomegaly with steatosis 2. Normal gallbladder and common bile duct. 3. No other acute findings Laboratory Results WBC 12.47 10^3/uL (3.29-11.43) H 05/12/24 10:42 RBC 5.14 10^6/uL (3.85-5.65) 05/12/24 10:42 Hgb 14.50 g/dL (11.27-16.99) 05/12/24 10:42 Hct 44.0 % (36-47) 05/12/24 10:42 MCV 85.6 fl (85-98) 05/12/24 10:42 MCH 28.2 pg (27-33) 05/12/24 10:42 MCHC 33.0 g/dL (30-55) 05/12/24 10:42 RDW 12.5 % (12.1-15.1) 05/12/24 10:42 Plt Count 349 10^3/cmm (157-399) 05/12/24 10:42 MPV 8.4 fL (7.4-10.4) 05/12/24 10:42 Neut % (Auto) 61.6 % 05/12/24 10:42 Lymph % (Auto) 30.7 % 05/12/24 10:42 [place] % (Auto) 5.8 % 05/12/24 10:42 Eos % (Auto) 1.0 % 05/12/24 10:42 Baso % (Auto) 0.4 % 05/12/24 10:42 Neut # (Auto) 7.69 10^3/uL (1.8-7.7) 05/12/24 10:42 Lymph # (Auto) 3.8 10^3/uL (0.8-4.8) 05/12/24 10:42 [place] # (Auto) 0.7 10^3/uL (0.2-0.9) 05/12/24 10:42 Eos # (Auto) 0.1 10^3/uL (0.0-0.8) 05/12/24 10:42 Baso # (Auto) 0.1 10^3/uL (0.0-0.1) 05/12/24 10:42 Nucleated RBC % (auto) 0 % 05/12/24 10:42 Nucleated RBCs # 0.0 /100WBC 05/12/24 10:42 Sodium 136 mmol/L (136-145) 05/12/24 10:42 Potassium 3.1 mmol/L (3.5-5.1) L 05/12/24 10:42 Chloride 99 mmol/L (98-107) 05/12/24 10:42 Carbon Dioxide 26 mmol/L (22-29) 05/12/24 10:42 Anion Gap 14.1 (5-19) 05/12/24 10:42 BUN 9 mg/dL (8-23) 05/12/24 10:42 Creatinine 0.5 mg/dL (0.5-0.9) 05/12/24 10:42 GFR Calculation 124.6 mL/min (90-130) 05/12/24 10:42 Glucose 131 mg/dL (65-115) H 05/12/24 10:42 Calculated Osmolality 282 mOsm/kg (285-295) L 05/12/24 10:42 Calcium 8.6 mg/dL (8.5-10.5) 05/12/24 10:42 Magnesium 2.4 mg/dL (1.7-2.3) H 05/12/24 10:42 Total Bilirubin 0.3 mg/dL (0.15-1.2) 05/12/24 10:42 AST 17 U/L (0-32) 05/12/24 10:42 ALT 14 U/L (0-33) 05/12/24 10:42 Alkaline Phosphatase 92 U/L (35-105) 05/12/24 10:42 Total Protein 6.9 g/dL (6.6-8.7) 05/12/24 10:42 Albumin 3.9 g/dL (3.5-5.2) 05/12/24 10:42 Globulin 3.0 g/dL (1.3-4.6) 05/12/24 10:42 All radiology interpretation(s) finalized by discharge Discharge Plan Discharge Patient Disposition: Home Clinical Impression: Abdominal pain, Hypokalemia Condition: Stable Prescriptions: No Action hydrochlorothiazide 12.5 mg tablet 12.5 mg PO DAILY multivitamin Tablet 1 tab PO DAILY trospium 60 mg Capsule,Extended Release 24hr 60 mg PO DAILY Rx Instructions: must be taken on empty stomach at least 1 hour before a meal/food with water only [id number] calcium-B6 2-1.13-25 mg Tablet 1 tab PO DAILY sucralfate [Carafate] 1 gram tablet 1 g PO TID 14 Days Qty: 42 0RF pantoprazole [Protonix] 40 mg tablet,delayed release (DR/EC) 40 mg PO DAILY 28 Days Qty: 28 0RF ondansetron 4 mg tablet,disintegrating 4 mg PO Q8H PRN (Reason: nausea and vomiting) Qty: 14 0RF Discharge Orders: Discharge ED (Routine); Ordered 05/12/24 Ordered By: Miky Lopez Discharge Diet: Advance as tolerated Discharge Activity: Resume usual activity Patient Instructions: Abdominal Pain (ED) Print Language: Nepalese Coding Level of Care Code ED Flat Breakdown Processor for Kai Clarke
[2024-05-12 11:12] LABS: Alanine Aminotransferase 14 U/L (0-33); Albumin Level 3.9 g/dL (3.5-5.2); Alkaline Phosphatase 92 U/L (35-105); Anion Gap 14.1 (5-19); Aspartate Amino Transferase 17 U/L (0-32); Blood Urea Nitrogen 9 mg/dL (8-23); Calcium 8.6 mg/dL (8.5-10.5); Carbon Dioxide 26 mmol/L (22-29); Chloride 99 mmol/L (98-107); Glomerular Filtration Rate 124.6 mL/min (90-130); Glucose 131 mg/dL (65-115); Magnesium 2.4 mg/dL (1.7-2.3); Osmolality Calculated 282 mOsm/kg (285-295); Potassium 3.1 mmol/L (3.5-5.1); Sodium 136 mmol/L (136-145); Total Bilirubin 0.3 mg/dL (0.15-1.2); Total Protein 6.9 g/dL (6.6-8.7)
[2024-05-12] MEDS: potassium chloride ER 20 mEq Tablet 60 MEQ PO (11:19)
[2024-05-12] MEDS: lidocaine 2% viscous 15 ML, aluminum-mag hydrox-simethicon 30 ML, sucralfate oral liq 1 GM PO (11:20)
[2024-05-12] MEDS: sodium chloride 0.9% 1,000 ML 999 ML IV (11:26)
[2024-05-12 11:29] VITALS: PULSE 90; O2SAT 100
[2024-05-12 12:00] VITALS: BP 141/74; PULSE 86; O2SAT 99
[2024-05-12 12:38] VITALS: BP 140/81; PULSE 89; O2SAT 97
== END 2024-05-12 12:40 | disposition home or self-care (01) ==
PROVIDERS: Physician Assistant; Emergency Provider Emergency Medicine
DX: R10.9 Unspecified abdominal pain (principal); E87.6 Hypokalemia; Z87.891 Personal history of nicotine dependence
CPT/HCPCS: 36415; 76705; 80053; 83735; 85025; 93005; 96360; 99284; J7030; J9999

== ENCOUNTER 2024-05-20 10:44 | Day surgery (SDC) | payer OTHER, SELFPAY ==
[2024-05-20 11:20] VITALS: BP 110/69; PULSE 99; RESP 16; TEMP 36.5; O2SAT 94
[2024-05-20] MEDS: sodium chloride 0.9% 1,000 ML 30 ML IV (11:20)
--- NOTE | 2024-05-20 11:22 | ANES.PREANE2 ---
Pre-Anesthetic Assessment Height/Weight: Height 1.55 m Weight 99.79 kg Temp Pulse Resp BP Pulse Ox O2 Del Method 97.7 F 99 16 110/69 94 Room Air 05/20/24 11:20 05/20/24 11:20 05/20/24 11:20 05/20/24 11:20 05/20/24 11:20 05/20/24 11:20 Preop Diagnosis: Pain Operation Date: 05/20/24 12:00 Proposed Procedures p EGD 30554 R10.9(Not Applicable) - Jhoan Gates MD Familial anesthetic complications: none Was Beta Tai taken within 24 hours: N/A Was Clonidine taken within 24 hours: N/A Last intake: Intake Last Liquid Date 05/19/24 Last Liquid Time 22:00 Last Solid Date 05/19/24 Last Solid Time 22:00 Social No alcohol and No tobacco Exam alert, oriented x 3, clear to auscultation bilaterally and regular rate & rhythm Airway Submandibular: within normal limits Cervical ROM: within normal limits Mallampati: Class II Dentition: full History/ROS No significant history except as noted and No significant complaints Pulmonary Exertional Dyspnea CV/HEM Hypertension None reported Hepatic None reported GI Gastroesophageal Reflux Disease Metabolic None reported Musc/skel Weakness Neuropsych None reported Anesthetic Plan ASA status: 2 Anesthesia: MAC Risk of > 500 ml blood loss (7ml/kg in children): No Medications/Allergies Home Medications ?Medication ?Instructions ?Recorded ?Confirmed ?Last Taken ?Type hydrochlorothiazide 12.5 mg tablet 12.5 mg PO DAILY 07/12/21 05/19/24 05/19/24 History multivitamin 1 tab PO DAILY 07/12/21 05/19/24 05/19/24 History trospium 60 mg capsule,extended 60 mg PO DAILY 05/05/24 05/19/24 05/19/24 History release 24 hr sucralfate 1 gram tablet 1 g PO TID 05/19/24 05/19/24 05/19/24 History Allergies Allergy/AdvReac Type Severity Reaction Status Date / Time montelukast (From [facility]) Allergy unnknow Verified 05/15/24 14:52 Penicillins Allergy Unknown Verified 05/15/24 14:52 antibiotics Allergy Unknown Uncoded 05/15/24 14:52 antidepressants Allergy Unknown Uncoded 05/15/24 14:52 steroid packs Allergy Unknown Uncoded 05/15/24 14:52 Current Medications Generic Name Dose Route Start Last Admin Trade Name Freq PRN Reason Stop Dose Admin Sodium Chloride 1,000 mls @ 30 mls/hr 05/20/24 11:00 05/20/24 11:20 Sodium Chloride 0.9% IV 30 mls/hr .Q24H SUSAN Administration PFSH Anesthesia Medical History Anxiety Fatigue Family History Mother Anesthesia complication Lung disease Father Bleeding disorder CAD (coronary artery disease) Diabetes Family/Other CAD (coronary artery disease) Cancer Chronic kidney disease (CKD) Stroke Suicide Diabetes Grandfather Dementia Denies family history of Clotting disorder Social History Smoking and tobacco/nicotine status: former use of tobacco/nicotine (quit 20 years ago) Female Reproductive History Spontaneous abortions: No Data Anesthesia Cardiac Studies: Cardiac Event Monitor 08/03/21
--- NOTE | 2024-05-20 11:48 | W.PM.OPSUD ---
Surgery/Procedure H&P Update DATE OF PROCEDURE: May 20, 2024 DATE H&P PERFORMED: 05/15/24 H&P UPDATE INFORMATION: I have reviewed H&P completed within last 30 days, I have examined patient prior to procedure and No changes to prior documentation PREOP DIAGNOSIS: Pain PLANNED PROCEDURE: Operation Date: 05/20/24 12:00 Proposed Procedures p EGD 43380 R10.9(Not Applicable) - Jhoan Gates MD
[2024-05-20 12:07] VITALS: BP 120/72; PULSE 88; RESP 16; TEMP 36.2; O2SAT 98
--- NOTE | 2024-05-20 12:53 | ANE.PACU2 ---
Inpatient post-anesthesia follow up: Airway intact: Yes Vital signs: Temperature 97.2 F Pulse Rate 88 Respiratory Rate 16 Blood Pressure 120/72 Pulse Oximetry 98 Oxygen Delivery Me thod Room Air Oxygen Flow Rate Fraction of Inspir ed Oxygen Hydration adequate: Yes Nausea and vomiting: No Pain level: 1 Mental status: Baseline
== END 2024-05-20 12:53 | disposition home or self-care (01) ==
PROVIDERS: PCP Family Medicine; Visit Provider Student in an Organized Health Care Education/Training Program
PROC: 0DJ08ZZ Inspection of Upper Intestinal Tract, Via Natural or Artificial Opening Endoscopic (ICD-10-PCS; principal; 2024-05-20 12:00)
DX: K25.7 Chronic gastric ulcer without hemorrhage or perforation (principal); K21.9 Gastro-esophageal reflux disease without esophagitis; Z79.899 Other long term (current) drug therapy; Z88.1 Allergy status to other antibiotic agents; Z88.8 Allergy status to other drugs, medicaments and biological substances; Z88.0 Allergy status to penicillin; Z87.891 Personal history of nicotine dependence; Z87.19 Personal history of other diseases of the digestive system
CPT/HCPCS: 43239; 88305; 88342; J2704; J7030

== ENCOUNTER 2024-09-26 05:00 | Outpatient (RCR) | payer OTHER, SELFPAY | END 2024-10-26 23:59 | disposition home or self-care (01) | LOC: MPT 05:00 | PROVIDERS: Visit Provider Nurse Practitioner Family | DX: M54.9 Dorsalgia, unspecified (principal) | CPT/HCPCS: 97110; 97140; 97162 ==

== ENCOUNTER 2024-10-27 05:00 | Outpatient (RCR) | payer OTHER, SELFPAY | END 2024-11-25 23:59 | disposition home or self-care (01) | LOC: MPT 05:00 | PROVIDERS: Visit Provider Nurse Practitioner Family | DX: M54.9 Dorsalgia, unspecified (principal) | CPT/HCPCS: 97110; 97140; 97530; G0283 ==

== ENCOUNTER → 2024-10-27 12:32 | Outpatient (BNVA) | payer OTHER, SELFPAY | PROVIDERS: Visit Provider Registered Nurse Neonatal Intensive Care | DX: R39.15 Urgency of urination (principal) | CPT/HCPCS: 81000 ==

== ENCOUNTER 2024-10-28 13:47 | Emergency (ER) | payer OTHER, SELFPAY ==
[2024-10-28 13:51] VITALS: BP 141/80; PULSE 93; TEMP 36.7; O2SAT 96
--- OUTSIDE RECORDS SUMMARY | 2024-10-28 13:56 | XMS_ITS | Encounter Summary ---
Author Organization [facility] Address [address] [place] [address] Care Team Providers Care Third Helper Name Role Phone Judy Souza MD Primary Care Provider [phone] Reason for Referral * Outpatient Services (Routine) - Closed Specialty Diagnoses / Procedures Referred By Contac t Referred To Contact Diagnoses Other screening mammogram Procedures MAMMO DIGITAL SCREEN BILAT Kelly Vázquez MD [address] [address] Phone: tel: fax: [facility] Pre-Registration [place] CALL TO MAKE APPOINTMENT ONLY [address] [place] [address] Phone: tel: fax: Referral ID Status Reason Start Date Expiration Date Visits Re quested Visits Authorized [id number] Closed 09/10/2012 10/11/2013 1 1 Encounter Details Date Type Department Care Team (Late st Contact Info) Description 09/10/2012 Ancillary Orders [facility] Pre-Registration [place] CALL TO MAKE APPOINTMENT ONLY [address] [place] [address] Kelly Vázquez MD [address] [address] Other screening mammogram (Primary Dx) Social History Tobacco Use Types Packs/Day Years Used Date Smoking Tobacco: Former Smokeless Tobacco: Never Alcohol Use Standard Drinks/Week Comments No 0 (1 standard drink = 0.6 oz pur e alcohol) Comments No Sex and Gender Information Value Date Recorded Sex Assigned at Not on file Legal 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 Gender Identity Not on file Sexual Orientation Not on file Occupation Industry Job Start Date Job End Date Not on file Not on file Not on file Not on file documented as of this encounter Plan of Treatment Not on file documented as of this encounter Results * MAMMO DIGITAL SCREEN BILAT (09/27/2012 4:05 PM CDT) Anatomical Region Laterality Modality Breast Bilateral Mammography Narrative 10/01/2012 9:41 AM CDT Bilateral Mammogram Reason for Exam: Screening Comparison: Compared to: 06/29/2011 MAMMO DIGITAL SCREEN BILAT, 07/06/2008 MAMMO DIGITIZED STUDY, 12/31/2006 MAMMO DIGITIZED STUDY, 7.7.10 Findings: Bilateral CC and MLO views were obtained. This examination was reviewed with the aid of a computer-aided detection system(CAD). The breast tissue density is average. Bilateral breast nodularity is stable. No significant new findings since the prior mammogram(s). Procedure Note Alena Archer MD - 10/01/2012 Bilateral Mammogram Reason for Exam: Screening Comparison: Compared to: 06/29/2011 MAMMO DIGITAL SCREEN BILAT, 07/06/2008MAMMO DIGITIZED STUDY, 12/31/2006 MAMMO DIGITIZED STUDY, 7.7.10 Findings: Bilateral CC and MLO views were obtained. This examination was reviewed with the aid of a computer-aided detectionsystem(CAD). The breast tissue density is average. Bilateral breast nodularity isstable. No significant new findings since the prior mammogram(s). Kelly Vázquez MD MAMMO ORDERABLES Final Result documented in this encounter Visit Diagnoses Diagnosis Other screening mammogram- Primary Other screening mammogram documented in this encounter Additional Health Concerns Infection Onset Date Last Indicated Resolved Time R/O COVID-19 10/13/2019 10/13/2019 10/15/2019 4:00 AM CDT COVID-19 10/13/2019 10/13/2019 11/12/2019 8:08 PM CDT documented as of this encounter Care Teams Third Helper Relationship Specialty Start Date End Date Judy Souza MD [address] [place] [phone] PCP - General Family Practice 07/14/19 documented as of this encounter
--- OUTSIDE RECORDS SUMMARY | 2024-10-28 13:56 | XMS_ITS | Encounter Summary ---
Author Organization [facility] Address [address] [place] [address] Care Team Providers Care Dean Of Chapel Name Role Phone Judy Souza MD Primary Care Provider Reason for Referral * Radiology Services (Routine) - Closed Specialty Diagnoses / Procedures Referred By Contac t Referred To Contact Radiology Diagnoses RUQ pain Procedures NM HEPATOBILIARY SCAN NM HEPATOBIL W PHARM INTERV Judy Souza MD [address] [place] [phone] Phone: tel: fax: [facility] Nuclear Medicine [address] [place] [phone] Phone: tel: fax: Referral ID Status Reason Start Date Expiration Date V isits Requested Visits Authorized [id number] Closed F CTS to Schedule 01/12/2020 02/11/2021 1 1 AND CO FOUNDER Encounter Details Date Type Department Care Team (Late st Contact Info) Description 02/09/2020 Ancillary Orders [facility] Family Medicine [address] [place] [address] Judy Souza MD [address] [place] [address] RUQ pain Social History Tobacco Use Types Packs/Day Years Used Date Smoking Tobacco: Former Cigarettes 1 20 0 06/18/1984 - 06/18/2004 Smokeless Tobacco: Never Alcohol Use Standard Drinks/Week Comments No 0 (1 standard drink = 0.6 oz pur e alcohol) Comments No Sex and Gender Information Value Date Recorded Sex Assigned at Not on file Legal Sex Female 3:13 AM CEO AND CO FOUNDER Gender Identity Not on file Sexual Orientation Not on file Occupation Industry Job Start Date Job End Date Not on file Not on file Not on file Not on file COVID-19 Exposure Response Date Recorded In the last month, have you been in contact with someone who was confirmed or suspected to have Coronavirus / COVID-19? No / Unsure 02/10/2020 9:29 AM CEO AND CO FOUNDER documented as of this encounter Plan of Treatment Not on file documented as of this encounter Results * NM HEPATOBILIARY SCAN (02/09/2020 11:05 AM CEO AND CO FOUNDER) Anatomical Region Laterality Modality Abdomen Nuclear Medicine 02/09/2020 11:0 6 AM CEO AND CO FOUNDER Impressions 02/09/2020 11:26 AM CEO AND CO FOUNDER IMPRESSION: No evidence of acute or chronic cholecystitis. No common bile duct obstruction. This laboratory has been accredited by the Intersocietal Commission for the Accreditation of Nuclear Medicine Laboratories (IAC Nuclear/PET). [id number] Narrative 02/09/2020 11:26 AM CEO AND CO FOUNDER NM HEPATOBILIARY SCAN HISTORY: Abd pain, RUQ COMPARISON: PROCEDURE: Following the intravenous administration of 5.2 mCi of technetium 99m Choletec, planar images of the abdomen were obtained in anterior projection for 60 minutes. 8 oz of Ensure Plus was given. FINDINGS: The liver parenchyma shows normal concentration of tracer. Tracer accumulation in the common bile duct and gallbladder starts being visualized by 10 minutes of imaging. Tracer accumulation in the small bowel starts being visualized by 60 minutes of imaging.Gallbladder region of interest time-activity curve derived ejection fraction is 48%, with normal being greater than 35%. Procedure Note Blake Flores MD - 02/09/2020 NM HEPATOBILIARY SCAN HISTORY: Abd pain, RUQ COMPARISON: PROCEDURE: Following the intravenous administration of 5.2 mCi of technetium 99m Choletec, planar images of the abdomen were obtained in anterior projection for 60 minutes. 8 oz of Ensure Plus was given. FINDINGS: The liver parenchyma shows normal concentration of tracer. Tracer accumulation in the common bile duct and gallbladder starts being visualized by 10 minutes of imaging. Tracer accumulation in the small bowel starts being visualized by 60 minutes of imaging.Gallbladder region of interest time-activity curve derived ejection fraction is 48%, with normal being greater than 35%. IMPRESSION: No evidence of acute or chronic cholecystitis. No common bile duct obstruction. This laboratory has been accredited by the Intersocietal Commission for the Accreditation of Nuclear Medicine Laboratories (IAC Nuclear/PET). [id number] Judy Souza MD [place] ORDERABLES Final Result documented in this encounter Visit Diagnoses Diagnosis RUQ pain Abdominal pain, right upper quadrant RUQ pain Abdominal pain, right upper quadrant documented in this encounter Care Teams Dean Of Chapel Relationship Specialty Start Date End Date Judy Souza MD [address] [place] [phone] PCP - General Family Practice 07/14/19 documented as of this encounter
--- OUTSIDE RECORDS SUMMARY | 2024-10-28 13:56 | XMS_ITS | Encounter Summary ---
Author Organization [facility] Address [address] [place] [address] Care Team Providers Care Orthopedic Nurse Practitioner Name Role Phone Judy Souza MD Primary Care Provider Reason for Referral * Outpatient Services (Routine) - Closed Specialty Diagnoses / Procedures Referred By Contannamarie t Referred To Contact Diagnoses Other screening mammogram Procedures MAMMO DIGITAL SCREEN BILAT Kelly Vázquez MD [address] [address] Phone: tel: fax: Referral ID Status Reason Start Date Expiration Date Visits Re quested Visits Authorized [id number] Closed 06/02/2013 07/03/2014 1 1 Encounter Details Date Type Department Care Team (Late st Contact Info) Description 06/02/2013 Ancillary Orders [facility] Pre-Registration [place] CALL TO MAKE APPOINTMENT ONLY [address] [place] [address] Kelly Vázquez MD [address] [phone] Other screening mammogram (Primary Dx) Social History Tobacco Use Types Packs/Day Years Used Date Smoking Tobacco: Former Smokeless Tobacco: Never Alcohol Use Standard Drinks/Week Comments No 0 (1 standard drink = 0.6 oz pur e alcohol) Comments No Sex and Gender Information Value Date Recorded Sex Assigned at Not on file Legal 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 Gender Identity Not on file Sexual Orientation Not on file Occupation Industry Job Start Date Job End Date Not on file Not on file Not on file Not on file documented as of this encounter Plan of Treatment Not on file documented as of this encounter Results * MAMMO DIGITAL SCREEN BILAT (09/29/2013 4:20 PM CDT) Anatomical Region Laterality Modality Breast Bilateral Mammography Narrative 09/30/2013 10:41 AM CDT Bilateral Mammogram Reason for Exam: Screening Comparison: Compared to: 09/27/2012 MAMMO DIGITAL SCREEN BILAT, 06/29/2011 MAMMO DIGITAL SCREEN BILAT, 09/01/2009 MAMMO DIGITAL SCREEN BILAT, 07/06/2008 MAMMO DIGITIZED STUDY Findings: Bilateral CC and MLO views were obtained. This examination was reviewed with the aid of a computer-aided detection system(CAD). The breast tissue density is fatty. Bilateral breast nodularity is stable. No significant new findings since the prior mammogram(s). Procedure Note Alena Archer MD - 09/30/2013 Bilateral Mammogram Reason for Exam: Screening Comparison: Compared to: 09/27/2012 MAMMO DIGITAL SCREEN BILAT, 06/29/2011MAMMO DIGITAL SCREEN BILAT, 09/01/2009 MAMMO DIGITAL SCREEN BILAT,07/06/2008 MAMMO DIGITIZED STUDY Findings: Bilateral CC and MLO views were obtained. This examination was reviewed with the aid of a computer-aided detectionsystem(CAD). The breast tissue density is fatty. Bilateral breast nodularity isstable. No significant new [...] documented as of this encounter Care Teams Orthopedic Nurse Practitioner Relationship Specialty Start Date End Date [place] [phone] PCP - General Family Practice 07/14/19 documented as of this encounter
--- OUTSIDE RECORDS SUMMARY | 2024-10-28 13:56 | XMS_ITS | Encounter Summary ---
Author Organization [facility] Address [address] [place] [address] Care Team Providers Care Brassiere Cup Mold Cutter Name Role Phone Judy Souza MD Primary Care Provider [phone] Reason for Referral * Outpatient Services (Routine) - Closed Specialty Diagnoses / Procedures Referred By Contac t Referred To Contact Radiology Diagnoses PMB (postmenopausal bleeding) Procedures US PELVIC TRANSVAGINAL Kelly Vázquez MD [address] [place] [address] Phone: tel: fax: [facility]trasound Services-[facility] [place] [address] [place] [address] Phone: tel: fax: Referral ID Status Reason Start Date Expiration Date Visits Requested Visits Authorized [id number] Closed Ordering Department To Schedule 05/21/2013 06/21/2014 1 1 Encounter Details Date Type Department Care Team (Late st Contact Info) Description 05/21/2013 Ancillary Orders [facility] OBGYN-[facility]ridger Erazo Cristiano [address] [place] [address] Kelly Vázquez MD [address] [place] [phone] PMB (postmenopausal bleeding) (Primary Dx) Social History Tobacco Use Types Packs/Day Years Used Date Smoking Tobacco: Former Smokeless Tobacco: Never Alcohol Use Standard Drinks/Week Comments No 0 (1 standard drink = 0.6 oz pur e alcohol) Comments No Sex and Gender Information Value Date Recorded Sex Assigned at Not on file Legal Sex Female 3:13 AM SURGICAL CORSETIER Gender Identity Not on file Sexual Orientation Not on file Occupation Industry Job Start Date Job End Date Not on file Not on file Not on file Not on file documented as of this encounter Plan of Treatment Not on file documented as of this encounter Results * US PELVIC TRANSVAGINAL (05/21/2013 10:39 AM CDT) Anatomical Region Laterality Modality Pelvis Ultrasound Impressions 05/22/2013 8:11 AM CDT : Small ovary cysts. COMMENTS: Small intracavitary mass (1.2 cm) which was suspected to represent a polyp, and small leiomyomata (< 1.0 cm) described on the prior exam of 03/15/11 are not appreciated. A small right ovary cyst (1.6 cm) described on the prior exam may be related to or independent of today's finding. At least annual ultrasound surveillance of postmenopausal unilocular ovarian cysts 1.0 - 7.0 cm is warranted (SRU Consensus, Ultrasound Quart 26:121, 2010). Tech: Iza Gallagher RDMS Narrative 05/22/2013 8:11 AM CDT GYNECOLOGIC ULTRASOUND REPORT Requesting Physician: Kelly Vázquez MD Indication: Post menopausal bleeding Last Menstrual Period: unknown Pertinent History: The patient is post-menopausal. Exam Type(s): Transabdominal and Endovaginal UTERUS and PELVIS Longitudinal A/P Transverse Volume 5.5 cm 4.3 cm 5.7 cm 70.5 mL Position: anteverted Appearance: The uterus appears normal in size, shape and contour. Myometrium: Appears homogeneous Endometrium: Endometrial stripe measures 0.3 cm OVARIES and ADNEXA Length Diameter 1 Diameter 2 Volume Right: 3.1 cm 2.1 cm 2.5 cm 8.5 mL Left: 2.6 cm 1.6 cm 1.4 cm 3.0 mL Findings: Right ovary cysts: 1. 1.3 x 0.9 x 2.1 cm unilocular anechoic. 2. 1.3 x 0.7 x 0.8 cm unilocular anechoic. Procedure Note Kashif Vázquez II, MD - 05/22/2013 GYNECOLOGIC ULTRASOUND REPORT Requesting Physician: Kelly Vázquez MD Indication: Post menopausal bleeding Last Menstrual Period: unknown Pertinent History: The patient is post-menopausal. Exam Type(s): Transabdominal and Endovaginal UTERUS and PELVIS Longitudinal A/P Transverse Volume 5.5 cm 4.3 cm 5.7 cm 70.5 mL Position: anteverted Appearance: The uterus appears normal in size, shape and contour. Myometrium: Appears homogeneous Endometrium: Endometrial stripe measures 0.3 cm OVARIES and ADNEXA Length Diameter 1 Diameter 2 Volume Right: 3.1 cm 2.1 cm 2.5 cm 8.5 mL Left: 2.6 cm 1.6 cm 1.4 cm 3.0 mL Findings: Right ovary cysts: 1. 1.3 x 0.9 x 2.1 cm unilocular anechoic. 2. 1.3 x 0.7 x 0.8 cm unilocular anechoic. IMPRESSION: Small ovary cysts. COMMENTS: Small intracavitary mass (1.2 cm) which was suspected to represent apolyp, and small leiomyomata (< 1.0 cm) described on the prior exam of03/15/11 are not appreciated. A small right ovary cyst (1.6 cm) described on the prior exam may berelated to or independent of today's finding. At least annual ultrasoundsurveillance of postmenopausal unilocular ovarian cysts 1.0 - 7.0 cm iswarranted (SRU Consensus, Ultrasound Quart 26:121, 2010). Tech: Iza Gallagher RDMS us Kelly Vázquez MD US ORDERABLES Final Result documented in this encounter Visit Diagnoses Diagnosis PMB (postmenopausal bleeding)- Primary Postmenopausal bleeding documented in this encounter Additional Health Concerns Infection Onset Date Last Indicated Resolved Time R/O COVID-19 10/13/2019 10/13/2019 10/15/2019 4:00 AM CDT COVID-19 10/13/2019 10/13/2019 11/12/2019 8:08 PM CDT documented as of this encounter Care Teams Brassiere Cup Mold Cutter Relationship Specialty Start Date End Date Judy Souza MD [facility] [place] [address] PCP - General Family Practice 07/14/19 documented as of this encounter
--- OUTSIDE RECORDS SUMMARY | 2024-10-28 13:56 | XMS_ITS | Encounter Summary ---
Author Organization [facility] Address [address] [place] [address] Care Team Providers Care Auto Parts Clerk Name Role Phone Judy Souza MD Primary Care Provider [phone] Encounter Details Date Type Department Care Team (Latest Contact Info) Description 05/15/2012 Ancillary Orders [facility] Pre-Registration [place] CALL TO MAKE APPOINTMENT ONLY [address] [place] [address] Osmar Sears MD [address] [facility] [address] [place] [address] Dyspepsia and other specified disorders of function of stomach (Primary Dx); Abdominal pain, right upper quadrant Social History Tobacco Use Types Packs/Day Years Used Date Smoking Tobacco: Former Smokeless Tobacco: Never Alcohol Use Standard Drinks/Week Comments No 0 (1 standard drink = 0.6 oz pur e alcohol) Comments No Sex and Gender Information Value Date Recorded Sex Assigned at Not on file Legal Sex Female 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 Gender Identity Not on file Sexual Orientation Not on file Occupation Industry Job Start Date Job End Date Not on file Not on file Not on file Not on file documented as of this encounter Plan of Treatment Not on file documented as of this encounter Visit Diagnoses Diagnosis Dyspepsia and other specified disorders of function of stomach- Primary Abdominal pain, right upper quadrant documented in this encounter Additional Health Concerns Infection Onset Date Last Indicated Resolved Time R/O COVID-19 10/13/2019 10/13/2019 10/15/2019 4:00 AM CDT COVID-19 10/13/2019 10/13/2019 11/12/2019 8:08 PM CDT documented as of this encounter Care Teams Auto Parts Clerk Relationship Specialty Start Date End Date Judy Souza MD [address] [place] [phone] PCP - General Family Practice 07/14/19 documented as of this encounter
--- OUTSIDE RECORDS SUMMARY | 2024-10-28 13:57 | XMS_ITS | Encounter Summary ---
Author Organization [facility] Address [address] [place] [address] Care Team Providers Care Senior Portfolio Manager Name Role Phone Judy Souza MD Primary Care Provider [phone] Encounter Details Date Type Department Care Team (Late st Contact Info) Description 09/27/2017 Ancillary Orders [facility] Pre-Registration [place] CALL TO MAKE APPOINTMENT ONLY [address] [place] [address] Kelly Vázquez MD [address] [address] Visit for screening mammogram Social History Tobacco Use Types Packs/Day Years Used Date Smoking Tobacco: Former Cigarettes 1 20 0 06/18/1984 - 06/18/2004 Smokeless Tobacco: Never Alcohol Use Standard Drinks/Week Comments No 0 (1 standard drink = 0.6 oz pur e alcohol) Comments No Sex and Gender Information Value Date Recorded Sex Assigned at Not on file Legal Sex Female 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 Gender Identity Not on file Sexual Orientation Not on file Occupation Industry Job Start Date Job End Date Not on file Not on file Not on file Not on file documented as of this encounter Plan of Treatment Not on file documented as of this encounter Visit Diagnoses Diagnosis Visit for screening mammogram Other screening mammogram documented in this encounter Additional Health Concerns Infection Onset Date Last Indicated Resolved Time R/O COVID-19 10/13/2019 10/13/2019 10/15/2019 4:00 AM CDT COVID-19 10/13/2019 10/13/2019 11/12/2019 8:08 PM CDT documented as of this encounter Care Teams Senior Portfolio Manager Relationship Specialty Start Date End Date Judy Souza MD [address] [place] [phone] PCP - General Family Practice 07/14/19 documented as of this encounter
--- OUTSIDE RECORDS SUMMARY | 2024-10-28 13:57 | XMS_ITS | Encounter Summary ---
Author Organization [facility] Address [address] [place] [address] Care Team Providers Care College Coach Name Role Phone Judy Souza MD Primary Care Provider [phone] Reason for Referral * Outpatient Services (Routine) - Closed Specialty Diagnoses / Procedures Referred By Contannamarie t Referred To Contact Diagnoses Other screening mammogram Procedures MAMMO DIGITAL SCREEN BILAT Kelly Vázquez MD [address] [address] Phone: tel: fax: Referral ID Status Reason Start Date Expiration Date Visits Re quested Visits Authorized [id number] Closed 07/22/2014 08/22/2015 1 1 Encounter Details Date Type Department Care Team (Late st Contact Info) Description 07/22/2014 Ancillary Orders [facility] Pre-Registration [place] CALL TO MAKE APPOINTMENT ONLY [address] [place] [address] Kelly Vázquez MD [address] [address] Other screening mammogram (Primary Dx) [...] on file Legal Sex Female 3:13 AM PACKING CHECKER Gender Identity Not on file Sexual Orientation Not on file Occupation Industry Job Start Date Job End Date Not on file Not on file Not on file Not on file documented as of this encounter Plan of Treatment Not on file documented as of this encounter Results * MAMMO DIGITAL SCREEN BILAT (09/25/2014 3:00 PM CDT) Anatomical Region Laterality Modality Breast Bilateral Mammography Narrative 09/28/2014 5:15 PM CDT Bilateral Mammogram Reason for Exam: Screening Comparison: Compared to: 09/29/2013 MAMMO DIGITAL SCREEN BILAT, 09/27/2012 MAMMO DIGITAL SCREEN BILAT Findings: Bilateral CC and MLO views were obtained. This examination was reviewed with the aid of a computer-aided detection system(CAD). The breast tissue density is fatty. No significant new findings since the prior mammogram(s). us Kelly Vázquez MD MAMMO ORDERABLES Final Result documented in this encounter Visit Diagnoses Diagnosis Other screening mammogram- Primary Other screening mammogram documented in this encounter Additional Health Concerns Infection Onset Date Last Indicated Resolved Time R/O COVID-19 10/13/2019 10/13/2019 10/15/2019 4:00 AM CDT COVID-19 10/13/2019 10/13/2019 11/12/2019 8:08 PM CDT documented as of this encounter Care Teams College Coach Relationship Specialty Start Date End Date Judy Souza MD [address] [place] [address] PCP - General Family Practice 07/14/19 documented as of this encounter
--- OUTSIDE RECORDS SUMMARY | 2024-10-28 13:57 | XMS_ITS | Encounter Summary ---
Author Organization [facility] Address [address] [place] [address] Care Team Providers Care Brand Attendant Name Role Phone Judy Souza MD Primary Care Provider [phone] Reason for Visit * Reason Comments Medication Refill Encounter Details Date Type Department Care Team (Late st Contact Info) Description 05/04/2017 Refill [facility] Allergy and Ast[facility]- [facility] [address] [place] [address] Kalie Casillas MD [address] [place] [phone] Social History Tobacco Use Types Packs/Day Years Used Date Smoking Tobacco: Former Cigarettes 1 20 0 06/18/1984 - 06/18/2004 Smokeless Tobacco: Never Alcohol Use Standard Drinks/Week Comments No 0 (1 standard drink = 0.6 oz pur e alcohol) Comments No Sex and Gender Information Value Date Recorded Sex Assigned at Not on file Legal Sex Female 3:13 AM SERVICE STATION CASHIER Gender Identity Not on file Sexual Orientation Not on file Occupation Industry Job Start Date Job End Date Not on file Not on file Not on file Not on file documented as of this encounter Miscellaneous Notes * Telephone Encounter - Mirlande Humphries CMA - 05/04/2017 9:30 AM SERVICE STATION CASHIER Pt last seen in office on 04/11/16. Should request refill from PCP or schedule appt. with Dr. Casillas. ICE STATION CASHIER documented in this encounter Plan of Treatment Not on file documented as of this encounter Visit Diagnoses Not on filedocumented in this encounter Additional Health Concerns Infection Onset Date Last Indicated Resolved Time R/O COVID-19 10/13/2019 10/13/2019 10/15/2019 4:00 AM CDT COVID-19 10/13/2019 10/13/2019 11/12/2019 8:08 PM CDT documented as of this encounter Care Teams Brand Attendant Relationship Specialty Start Date End Date Judy Souza MD [address] [place] [address] PCP - General Family Practice 07/14/19 documented as of this encounter
--- OUTSIDE RECORDS SUMMARY | 2024-10-28 13:57 | XMS_ITS | Clinical Summary ---
Author Organization [facility] Address [address] [place] [address] Phone Care Team Providers Care Program Coordinator Name Role Phone Judy Souza MD Primary Care Provider Allergies Active Allergy Reactions Criticality Noted Date Comments Buspirone Anxiety Low 07/14/2019 Montelukast Rash Medium 05/01/2016 Penicillins Anaphylaxis High 01/23/2011 Prednisone Other (See Comments) 11/26/2013 Anger, irritation and lack of sleep Medications * This document contains information received from the source organization and may not represent a complete record from that organization. Bftmulc-Lle-Xim- Ascorbic Acid 470 mg Oral Cap Take by mouth. Active 0mega-3 fatty acids-vitamin E (FISH OIL) 1,000 mg Capsule Take 1,000 mg by mouth. Active multivitamin (DAILY-APRIL) tablet Take 1 Tablet by mouth daily. Active ibuprofen (ADVIL;MOTRIN) 100 mg/5 mL suspension Take 800 mg by mouth every 6 hours as needed for Pain, Mild. Active fluticasone propionate (FLONASE) 50 mcg/spray [place], Suspension nasal inhaler 9 Active loratadine (CLARITIN ORAL) Take by mouth. Active hydroCHLOROthiaz sammy 25 mg tabletIndication s:RUQ pain TAKE ONE TABLET BY MOUTH DAILY 90 Tablet 3 0 Active omeprazole (PriLOSEC) 20 mg Capsule, Delayed Release(E.C.)Ind ications:RUQ pain,Gastroesoph ageal reflux disease without esophagitis Take 1 Capsule (20 mg) by mouth daily. 90 Capsule 3 0 Active nystatin (NYSTOP) 100,000 unit/gram powder Apply to affected area 2 times daily. 60 Gram 1 0 Active ALPRAZolam (XANAX) 0.5 mg tabletIndication s:RUQ pain,JERRELL (generalized anxiety disorder) TAKE ONE TABLET BY MOUTH THREE TIMES A DAY NEEDED FOR ANXIETY 90 Tablet 5 1 Active Active Problems Problem Noted Date Diagnosed Date Generalized anxiety disorder 05/26/2020 Gastroesophageal reflux disease without esophagi tis 05/26/2020 Episodic anisocoria 12/16/2019 Prediabetes 07/28/2019 Alcohol dependence in remission 07/14/2019 Dry eyes, bilateral 02/24/2019 Hyperopia of both eyes with astigmatism and pres byopia 02/24/2019 History of acute pancreatitis 05/01/2016 Perennial allergic rhinitis 05/01/2016 Stress at home 05/01/2016 Obesity (BMI 35.0-39.9 without comorbidity) 07/2016 Dyspnea on exertion 05/01/2016 Atypical chest pain 12/01/2015 Mid back pain 12/01/2015 Resolved Problems Problem Noted Date Diagnosed Date Resolved Date Difficulty breathing 12/01/2015 017 Elevated lipase 12/01/2015 05/01/2016 Elevated amylase 12/01/2015 05/01/2016 AGCUS favor benign 05/27/2013 7 Postmenopausal bleeding 05/12/201308/26 Leg swelling 04/11/2012 11/06/2016 Menopause 04/11/2012 05/01/2016 Menopausal hot flushes 04/11/201211/06 Acute pancreatitis 04/11/2012 7 Overview (04/11/2012): Admitted in [place], etiology not determined Fibroids, submucosal 04/21/2011 012 Endometrial polyp 04/21/2011 05/10/2011 Irregular menses 03/08/2011 05/10/2011 Menorrhagia 03/08/2011 05/10/2011 Family History Medical History Relation Name Comments Diabetes Father Heart Disease Father Hypertension Father Breast Cancer Maternal Cousin positive ri sk form to counselor - see media tab- under 50 Thyroid Disease Maternal Grandmother Other Mother psychiatric ill ness Thyroid Disease Mother Ovarian Cancer Paternal Aunt Mental Retardation Sister Thyroid Disease Sister hypothyroid Colon Cancer Neg Hx Relation Name Status Comments Father Alive Maternal Cousin Maternal Grandmother Mother Paternal Aunt Sister Alive Social History Tobacco Use Types Packs/Day Years Used Date Smoking Tobacco: Former Cigarettes 1 20 0 06/18/1984 - 06/18/2004 Smokeless Tobacco: Never Tobacco Cessation:Counseling Given: Yes Alcohol Use Standard Drinks/Week Comments No 0 (1 standard drink = 0.6 oz pur e alcohol) Comments No Sex and Gender Information Value Date Recorded Sex Assigned at Not on file Legal Sex Female 3:13 AM NIP WRAPPER Gender Identity Not on file Sexual Orientation Not on file Occupation Industry Job Start Date Job End Date Not on file Not on file Not on file Not on file Last Filed Vital Signs Vital Sign Reading Time Taken Comments Blood Pressure 118/82 06/14/2020 11:58 AM CDT Pulse 69 06/14/2020 11:58 AM CDT Temperature 36.7 C (98 F) 06/14/2020 11:58 AM CDT Respiratory Rate 13 05/10/2020 10:30 PM CDT Oxygen Saturation 98% 06/14/2020 11:58 AM CDT Inhaled Oxygen Concentration - - Weight 93 kg (205 lb) 06/14/2020 11:58 AM CDT Height 158.8 cm (5' 2.5 ) 05/26/2020 10:55 AM CD T Body Mass Index 36.9 05/26/2020 10:55 AM CDT Plan of Treatment Health Maintenance Due Date Last Done Comments DTAP/TDAP/TD VACCINES (1 - Tdap) 09/13/1979 FIT-DNA Q 3 years 2005 FIT/FOBT Q 1 year 2005 Flex Sig/CT Colonography Q 5 years 2005 ZOSTER VACCINE (1 of 2) 2010 BREAST CANCER SCREENING 06/25/2019 06/25/19 19, 10/09/2016, 10/06/2015, Additional history exists RSV VACCINE (60+ or ) (1 - Risk 60-74 years 1-dose series) 2020 PAP SMEAR 10/23/2021 10/23/2018, 10/27, 07/06/2014, Additional history exists COLORECTAL SCREENING 05/23/2022 05/23/2012, 05/23/2012, 05/23/2012 Colorectal Cancer Screening 05/23/2022 Pre-Diabetes and Diabetes Screening 07/13/2022 07/14/2019 CERVICAL CANCER SCREENING 10/24/2023 HPV/Cotest (21-29) 10/24/2023 10/23/2018, 0 11/06/2016, 07/06/2014, Additional history exists HPV/Cotest (30-65) 10/24/2023 10/23/2018, 0 11/06/2016, 07/06/2014, Additional history exists Preventative Visit- Commercial 02/27/2024 0 09/26/2023, 06/25/2023, 03/27/2023, Additional history exists INFLUENZA VACCINE (#1) 2024 04/26/2020 Procedures Procedure Name Priority Date/Time Associated Diagnosis Comments HEMOGLOBIN A1C Routine 07/14/2019 12:00 PM CDT Dry mouth Family history of diabetes mellitus in father CERV/VAG CYTO SCREEN PAP RLFX HPV Routine 10/23/2018 4:38 PM CDT Well woman exam with routine gynecological exam MAMMO SCREEN BILAT W OR WO CAD Routine 06/24/2018 ENDOSCOPY, COLON, SCREENING Routine 05/23/2012 2:15 PM CDT Screen for colon cancer from Last 3 Months or Most Recently Relevant to Health Maintenance Results * (ABNORMAL) HEMOGLOBIN A1C (07/14/2019 12:00 PM CDT) HEMOGLOBIN A1C 5.7(H) See Comment % 07/14/2019 6:49 PM CDT [facility] EST. AVG GLUCOSE, A1C 117 mg/dL 07/14/2019 6:49 PM CDT [facility] Blood Venipuncture / Unknown 07/14/2019 12:00 PM CDT 07/14/2019 6:16 PM CDT Narrative [facility] - 07/14/2019 6:49 PM CDT HGB A1C INTERPRETATION NORMAL: <5.7% PRE-DIABETES: 5.7 - 6.4% DIABETES: 6.5% OR GREATER Falsely low A1C measurements can occur when: 1. Anemia and/or hemolytic anemia is present. 2. Hemoglobin variants present. 3. Renal failure. 4. Transfusion of blood product in the last 120 days. We recommend ordering a fructosamine test([id number]) to more accurately assess glycemic status if any of the above conditions are present. Judy Souza MD CHEMISTRY ORDERABLES Final Resul t [facility] CLIA# [id number] [place] [address] * CERV/VAG CYTO SCREEN PAP RLFX HPV (10/23/2018 4:38 PM CDT) CLINICAL INFORMATION Information not provided 10/31/2018 1:26 PM CDT [facility] LAST MENSTRUAL PERIOD INFORMATION NOT PROVIDED 10/31/2018 1:26 PM CDT [facility] PREV PAP: NIL 10/31/2018 1:26 PM CDT [facility] PREV BX: [id number] 10/31/2018 1:26 PM CDT [facility] SOURCE Endocervix 10/31/2018 1:26 PM CDT [facility] ADEQUACY: SEE COMMENT 10/31/2018 1:26 PM CDT [facility] Comment: Satisfactory for evaluation. Endocervical/transformation zone component present. PAP INTERP Negative for intraepithelial lesion or malignancy. 10/31/2018 1:26 PM CDT [facility] COMMENT This Pap test has been evaluated with computer assisted technology. 10/31/2018 1:26 PM CDT [facility] OBSTETRICS TEACHER: SEE COMMENT 2018 1:26 PM CDT [facility] Comment: LMT, CT(ASCP) CT screening location: [place] [address] [address] REVIEW OBSTETRICS TEACHER: SEE COMMENT 10/31/2018 1:26 PM CDT [facility] Comment: ABC, CT(ASCP) CT screening location: [place] [address] [address] [place] EXPLANATORY NOTE SEE COMMENT 019 1:26 PM CDT [facility] Comment: EXPLANATORY NOTE: The Pap is a screening test for cervical cancer. It is not a diagnostic test and is subject to false negative and false positive results. It is most reliable when a satisfactory sample, regularly obtained, is submitted with relevant clinical findings and history, and when the Pap result is evaluated along with historic and current clinical information. Genital SWAB OF ENDOCERVIX / Unknown Collection / Unknown 10/23/2018 4:38 PM CDT 10/24/2018 10:35 AM CDT Narrative [facility] - 10/31/2018 1:26 PM CDT Performing Organization Information: Site ID: [place] [facility] Address: [address] [address] [place] [address] Director: Miguel Angel Ragland us Kelly Vázquez MD PATHOLOGY/CYTOLOGY ORDERABLES F inal Result [facility] [phone] * MAMMO SCREEN BILAT W OR WO CAD (06/24/2018) Anatomical Region Laterality Modality Breast Bilateral Mammography us Abstract Spg Provider MAMMO ORDERABLES Edited Re sult - Final from Last 3 Months or Most Recently Relevant to Health Maintenance Insurance [employer] [place] [address] [employer] [place] [id number] [employer] [place] [address] Advance Directives For more information, please contact: [phone] * Full Code (Latest Code Status on File) Date Activated Date Inactivated Comments 05/23/2012 2:16 PM 05/23/2012 6:01 PM * Full Code Date Activated Date Inactivated Comments 04/25/2011 6:51 AM 04/25/2011 12:31 PM * Full Code Date Activated Date Inactivated Comments 04/25/2011 5:42 AM 04/25/2011 6:51 AM Care Teams Program Coordinator Relationship Specialty Start Date End Date Judy Souza MD [address] [place] [phone] PCP - General Family Practice 07/14/19
--- OUTSIDE RECORDS SUMMARY | 2024-10-28 13:57 | XMS_ITS | Encounter Summary ---
Author Organization [facility] Address [address] [place] [address] Care Team Providers Care Director [employer] Name Role Phone Judy Souza MD Primary Care Provider [phone] Reason for Referral * Radiology Services (Routine) - Closed Specialty Diagnoses / Procedures Referred By Contac t Referred To Contact Radiology Diagnoses Other chest pain Procedures NM PHARMACOLOGICAL STRESS TEST STRESS TEST EXERCISE NUCLEAR MED AR CV STRS TST XERS&/OR RX CONT ECG W/O I&R AR CARDIAC STRESS TST,INTERP/REPT ONLY Judy Souza MD [address] [place] [address] Phone: tel: fax: [facility] Nuclear Medicine [address] [place] [address] Phone: tel: fax: Referral ID Status Reason Start Date Expiration Date Visits Re quested Visits Authorized [id number] Closed 04/26/2020 05/27/2021 1 1 CISE INSTRUCT Encounter Details Date Type Department Care Team (Late st Contact Info) Description 05/13/2020 Ancillary Orders [facility] Family Medicine [address] [place] [address] Judy Souza MD [address] [place] [address] Other chest pain Social History Tobacco Use Types Packs/Day Years Used Date Smoking Tobacco: Former Cigarettes 1 20 0 06/18/1984 - 06/18/2004 Smokeless Tobacco: Never Alcohol Use Standard Drinks/Week Comments No 0 (1 standard drink = 0.6 oz pur e alcohol) Comments No Sex and Gender Information Value Date Recorded Sex Assigned at Not on file Legal Sex Female 3:13 AM EXERCISE INSTRUCT Gender Identity Not on file Sexual Orientation Not on file Occupation Industry Job Start Date Job End Date Not on file Not on file Not on file Not on file COVID-19 Exposure Response Date Recorded In the last month, have you been in contact with someone who was confirmed or suspected to have Coronavirus / COVID-19? No / Unsure 05/13/2020 11:46 AM CDT documented as of this encounter Plan of Treatment Not on file documented as of this encounter Results * NM PHARMACOLOGICAL STRESS TEST (05/13/2020 1:57 PM CDT) 05/13/2020 1:58 PM CDT Narrative INTERFACE SYSTEM - 05/13/2020 2:29 PM CDT NUCLEAR MEDICINE PHARMACOLOGIC STRESS TEST The patient attempted treadmill stress unsuccessfully. She was to distal mid to continue more than 1 to 2 minutes. The test was then changed to the pharmacologic mode. After a baseline blood pressure and ECG had been obtained, 0.4 mg of regadenoson were injected intravenously. ECG's were obtained at appropriate intervals thereafter. Findings: The resting blood pressure was 133/77 and resting heart rate 87. With the regadenoson infusion, the blood pressure went to 118/68] and heart rate to 112. The baseline ECG shows normal sinus rhythm. Borderline first-degree AV block was noted. The axis was rightward. With the Lexiscan infusion, there was up to approximately 0.[address] segment depression selected leads.]. The patient did not experience any significant adverse side effects. No significant arrhythmias were observed. No significant ST changes were noted. IMPRESSIONS: 1) Negative pharmacologic ecg stress test. The patient had attempted treadmill stress unsuccessfully. 2) The imaging portion of the study is reported separately. Procedure Note Matt Sam MD - 05/13/2020 NUCLEAR MEDICINE PHARMACOLOGIC STRESS TEST The patient attempted treadmill stress unsuccessfully. She was to distal mid to continue more than 1 to 2 minutes. The test was then changed to the pharmacologic mode. After a baseline blood pressure and ECG had been obtained, 0.4 mg of regadenoson were injected intravenously. ECG's were obtained at appropriate intervals thereafter. Findings: The resting blood pressure was 133/77 and resting heart rate 87. With the regadenoson infusion, the blood pressure went to 118/68] and heart rate to 112. The baseline ECG shows normal sinus rhythm. Borderline first-degree AV block was noted. The axis was rightward. With the Lexiscan infusion, there was up to approximately 0.[address] segment depression selected leads.]. The patient did not experience any significant adverse side effects. No significant arrhythmias were observed. No significant ST changes were noted. IMPRESSIONS: 1) Negative pharmacologic ecg stress test. The patient had attempted treadmill stress unsuccessfully. 2) The imaging portion of the study is reported separately. Judy Souza MD [place] ORDERABLES Final Result INTERFACE SYSTEM Refer to clinic/hospital department documented in this encounter Visit Diagnoses Diagnosis Other chest pain Other chest pain documented in this encounter Care Teams Director [employer] Retail Relationship Specialty Start Date End Date Judy Souza MD [address] [place] [phone] PCP - General Family Practice 07/14/19 documented as of this encounter
--- OUTSIDE RECORDS SUMMARY | 2024-10-28 13:57 | XMS_ITS | Encounter Summary ---
Author Organization [facility] Address [address] [place] [address] Care Team Providers Care Track Car Operator Name Role Phone Judy Souza MD Primary Care Provider Reason for Referral * Outpatient Services (Routine) - Closed Specialty Diagnoses / Procedures Referred By Freddy cloud Referred To Contact Diagnoses Other screening mammogram Procedures MAMMO DIGITIZED STUDY Kelly Vázquez MD [address] [address] Phone: tel: fax: Referral ID Status Reason Start Date Expiration Date Visits Re quested Visits Authorized [id number] Closed 05/03/2011 05/02/2012 1 1 K TO JUSTICE * Outpatient Services (Routine) - Closed Specialty Diagnoses / Procedures Referred By Contac t Referred To Contact Diagnoses Other screening mammogram Procedures MAMMO DIGITIZED STUDY Kelly Vázquez MD [address] [address] Phone: tel: fax: Referral ID Status Reason Start Date Expiration Date Visits Re quested Visits Authorized [id number] Closed 05/03/2011 05/02/2012 1 1 K TO JUSTICE Encounter Details Date Type Department Care Team (Late st Contact Info) Description 05/03/2011 Ancillary Orders [facility] Pre-Registration [place] CALL TO MAKE APPOINTMENT ONLY [address] [place] [phone] Kelly Vázquez MD [address] [facility] [address] [place] [address] Other screening mammogram Social History Tobacco Use Types Packs/Day Years Used Date Smoking Tobacco: Former Smokeless Tobacco: Never Alcohol Use Standard Drinks/Week Comments No 0 (1 standard drink = 0.6 oz pur e alcohol) Comments No Sex and Gender Information Value Date Recorded Sex Assigned at Not on file Legal Sex Female 3:13 AM CLERK TO JUSTICE Gender Identity Not on file Sexual Orientation Not on file Occupation Industry Job Start Date Job End Date Not on file Not on file Not on file Not on file documented as of this encounter Plan of Treatment Not on file documented as of this encounter Results * MAMMO DIGITIZED STUDY (07/06/2008 1:18 PM CDT) Narrative Nette Zacarias - 05/03/2011 1:19 PM CLERK TO JUSTICE Order information only. Exam was auto-finalized. Procedure Note Nette Zacarias - 05/03/2011 Order information only. Exam was auto-finalized. Kelly Vázquez MD DIAGNOSTIC IMAGING ORDERABLES F inal Result * MAMMO DIGITIZED STUDY (12/31/2006 1:18 PM CLERK TO JUSTICE) Narrative Nette Zacarias - 05/03/2011 1:18 PM CLERK TO JUSTICE Order information only. Exam was auto-finalized. Procedure Note Nette Zacarias - 05/03/2011 Order information only. Exam was auto-finalized. Kelly Vázquez MD DIAGNOSTIC IMAGING ORDERABLES F inal Result documented in this encounter Visit Diagnoses Diagnosis Other screening mammogram Other screening mammogram Other screening mammogram documented in this encounter Additional Health Concerns Infection Onset Date Last Indicated Resolved Time R/O COVID-19 10/13/2019 10/13/2019 10/15/2019 4:00 AM CDT COVID-19 10/13/2019 10/13/2019 11/12/2019 8:08 PM CDT documented as of this encounter Care Teams Track Car Operator Relationship Specialty Start Date End Date Judy Souza MD [address] [place] [address] PCP - General Family Practice 07/14/19 documented as of this encounter
--- OUTSIDE RECORDS SUMMARY | 2024-10-28 13:57 | XMS_ITS | Encounter Summary ---
Author Organization [facility] Address [address] [place] [address] Care Team Providers Care Shipping Clerk/Admin Name Role Phone Judy Souza MD Primary Care Provider [phone] Reason for Referral * Outpatient Services (Routine) - Closed Specialty Diagnoses / Procedures Referred By Freddy cloud Referred To Contact Diagnoses Visit for screening mammogram Procedures MAMMO DIGITAL SCREEN BILAT Molly Wray DO [address] [place] [address] Phone: tel: fax: Referral ID Status Reason Start Date Expiration Date Visits Re quested Visits Authorized [id number] Closed 08/10/2015 09/09/2016 1 1 Encounter Details Date Type Department Care Team (Latest Contact Info) Description 08/10/2015 Ancillary Orders [facility] Pre-Registration [place] CALL TO MAKE APPOINTMENT ONLY [address] [place] [address] Molly Wray DO [address] [place] [address] Visit for screening mammogram (Primary Dx) Social History Tobacco Use Types Packs/Day Years Used Date Smoking Tobacco: Former Cigarettes 1 20 0 06/18/1984 - 06/18/2004 Smokeless Tobacco: Never Alcohol Use Standard Drinks/Week Comments No 0 (1 standard drink = 0.6 oz pur e alcohol) Comments No Sex and Gender Information Value Date Recorded Sex Assigned at Not on file Legal Sex Female 3:13 AM PRODUCT STEWARD Gender Identity Not on file Sexual Orientation Not on file Occupation Industry Job Start Date Job End Date Not on file Not on file Not on file Not on file documented as of this encounter Plan of Treatment Not on file documented as of this encounter Results * MAMMO DIGITAL SCREEN BILAT (10/06/2015 4:15 PM CDT) Anatomical Region Laterality Modality Breast Bilateral Mammography Narrative 10/07/2015 9:58 AM CDT Bilateral Mammogram Reason for Exam: Screening Comparison: Compared to: 09/25/2014 MAMMO DIGITAL SCREEN BILAT, 09/29/2013 MAMMO DIGITAL SCREEN BILAT, 09/27/2012 MAMMO DIGITAL SCREEN BILAT, 06/29/2011 MAMMO DIGITAL SCREEN BILAT, 09/01/2009 MAMMO DIGITAL SCREEN BILAT, 07/06/2008 MAMMO DIGITIZED STUDY, 12/31/2006 MAMMO DIGITIZED STUDY Findings: Bilateral CC and MLO views were obtained. This examination was reviewed with the aid of a computer-aided detection system(CAD). The breast tissue density is fatty. No significant new findings since the prior mammogram(s). us Molly Wray DO MAMMO ORDERABLES Final Resu lt documented in this encounter Visit Diagnoses Diagnosis Visit for screening mammogram- Primary Other screening mammogram Visit for screening mammogram Other screening mammogram documented in this encounter Additional Health Concerns Infection Onset Date Last Indicated Resolved Time R/O COVID-19 10/13/2019 10/13/2019 10/15/2019 4:00 AM CDT COVID-19 10/13/2019 10/13/2019 11/12/2019 8:08 PM CDT documented as of this encounter Care Teams Shipping Clerk/Admin Relationship Specialty Start Date End Date Judy Souza MD [address] [place] [phone] PCP - General Family Practice 07/14/19 documented as of this encounter
--- OUTSIDE RECORDS SUMMARY | 2024-10-28 13:57 | XMS_ITS | Encounter Summary ---
Author Organization [facility] Address [address] [place] [address] Care Team Providers Care Scuba Diving Teacher Name Role Phone Judy Souza MD Primary Care Provider [phone] Encounter Details Date Type Department Care Team (Latest Contact Info) Description 02/01/2011 Ancillary Orders [facility] Pre-Registration [place] CALL TO MAKE APPOINTMENT ONLY [address] [place] [address] Awilda Saunders MD [address] [place] [phone] Dyspepsia and other specified disorders of function of stomach; Abdominal pain, epigastric Social History Tobacco Use Types Packs/Day Years Used Date Smoking Tobacco: Never Assessed Comments Unknown Sex and Gender Information Value Date Recorded Sex Assigned at Not on file Legal Sex Female 3:13 AM AIRPORT CONTROL OPERATOR Gender Identity Not on file Sexual Orientation Not on file documented as of this encounter Plan of Treatment Not on file documented as of this encounter Visit Diagnoses Diagnosis Dyspepsia and other specified disorders of function of stomach Abdominal pain, epigastric documented in this encounter Additional Health Concerns Infection Onset Date Last Indicated Resolved Time R/O COVID-19 10/13/2019 10/13/2019 10/15/2019 4:00 AM CDT COVID-19 10/13/2019 10/13/2019 11/12/2019 8:08 PM CDT documented as of this encounter Care Teams Scuba Diving Teacher Relationship Specialty Start Date End Date Judy Souza MD [address] [place] [address] PCP - General Family Practice 07/14/19 documented as of this encounter
--- OUTSIDE RECORDS SUMMARY | 2024-10-28 13:57 | XMS_ITS | Encounter Summary ---
Author Organization [facility] Address [address] [place] [address] Care Team Providers Care Artist Consultant Name Role Phone Judy Souza MD Primary Care Provider [phone] Reason for Referral * Outpatient Services (Routine) - Closed Specialty Diagnoses / Procedures Referred By Freddy cloud Referred To Contact Diagnoses Visit for screening mammogram Procedures MAMMO SCREEN BILAT W OR WO CAD Molly Wray DO [address] [place] [address] Phone: tel: fax: Referral ID Status Reason Start Date Expiration Date Visits Re quested Visits Authorized [id number] Closed 09/11/2016 10/12/2017 1 1 Encounter Details Date Type Department Care Team (Latest Contact Info) Description 09/11/2016 Ancillary Orders [facility] Pre-Registration [place] CALL TO MAKE APPOINTMENT ONLY [address] [place] [address] Molly Wray DO [address] [place] [address] Visit for screening mammogram Social History Tobacco Use Types Packs/Day Years Used Date Smoking Tobacco: Former Cigarettes 1 20 0 06/18/1984 - 06/18/2004 Smokeless Tobacco: Never Alcohol Use Standard Drinks/Week Comments No 0 (1 standard drink = 0.6 oz pur e alcohol) Comments No Sex and Gender Information Value Date Recorded Sex Assigned at Not on file Legal Sex Female 3:13 AM CHARGE ENTRY SPECIALIST Gender Identity Not on file Sexual Orientation Not on file Occupation Industry Job Start Date Job End Date Not on file Not on file Not on file Not on file documented as of this encounter Plan of Treatment Not on file documented as of this encounter Results * MAMMO SCREEN BILAT W OR WO CAD (10/09/2016 4:00 PM CDT) Anatomical Region Laterality Modality Breast Bilateral Mammography Narrative 10/10/2016 9:42 AM CDT Bilateral Mammogram Reason for Exam: Screening Comparison: Compared to: 10/06/2015 MAMMO DIGITAL SCREEN BILAT, 09/25/2014 MAMMO DIGITAL SCREEN BILAT, 09/29/2013 MAMMO DIGITAL SCREEN BILAT, 09/27/2012 MAMMO DIGITAL SCREEN BILAT, 06/29/2011 MAMMO DIGITAL SCREEN BILAT, 09/01/2009 MAMMO DIGITAL SCREEN BILAT, 07/06/2008 MAMMO DIGITIZED STUDY, and 12/31/2006 MAMMO DIGITIZED STUDY Findings: Bilateral CC and MLO views were obtained. This examination was reviewed with the aid of a computer-aided detection system(CAD). Breast Composition: The breasts are almost entirely fatty. Bilateral breast nodularity is stable. No significant new findings since the prior mammogram(s). Molly Wray DO MAMMO ORDERABLES Final Resu lt documented in this encounter Visit Diagnoses Diagnosis Visit for screening mammogram Other screening mammogram Visit for screening mammogram Other screening mammogram documented in this encounter Additional Health Concerns Infection Onset Date Last Indicated Resolved Time R/O COVID-19 10/13/2019 10/13/2019 10/15/2019 4:00 AM CDT COVID-19 10/13/2019 10/13/2019 11/12/2019 8:08 PM CDT documented as of this encounter Care Teams Artist Consultant Relationship Specialty Start Date End Date Judy Souza MD [address] [place] [address] PCP - General Family Practice 07/14/19 documented as of this encounter
--- OUTSIDE RECORDS SUMMARY | 2024-10-28 13:57 | XMS_ITS | Encounter Summary ---
Author Organization [facility] Address [address] [place] [address] Care Team Providers Care Workday Senior Associate Name Role Phone Judy Souza MD Primary Care Provider Reason for Referral * Outpatient Services (Routine) - Closed Specialty Diagnoses / Procedures Referred By Contac t Referred To Contact Radiology Diagnoses Other screening mammogram Procedures MAMMO DIGITAL SCREEN BILAT Kelly Vázquez MD [address] [address] Phone: tel: fax: [facility] Erazo Cristiano [address] [place] [address] Phone: tel: fax: Referral ID Status Reason Start Date Expiration Date Visits Re quested Visits Authorized [id number] Closed 03/13/2011 03/12/2012 1 1 TEXTURING MACHINE OPERATOR Encounter Details Date Type Department Care Team (Late st Contact Info) Description 03/13/2011 Ancillary Orders [facility] Pre-Registration [place] CALL TO MAKE APPOINTMENT ONLY [address] [place] [address] Kelly Vázquez MD [address] [address] Other screening mammogram Social History Tobacco Use Types Packs/Day Years Used Date Smoking Tobacco: Former Smokeless Tobacco: Never Alcohol Use Standard Drinks/Week Comments No 0 (1 standard drink = 0.6 oz pur e alcohol) Comments No Sex and Gender Information Value Date Recorded Sex Assigned at Not on file Legal Sex Female 3:13 AM YARN TEXTURING MACHINE OPERATOR Gender Identity Not on file Sexual Orientation Not on file Occupation Industry Job Start Date Job End Date Not on file Not on file Not on file Not on file documented as of this encounter Plan of Treatment Not on file documented as of this encounter Results * MAMMO DIGITAL SCREEN BILAT (06/29/2011 9:26 AM CDT) Anatomical Region Laterality Modality Breast Bilateral Mammography Narrative 07/03/2011 10:56 AM CDT Bilateral Mammogram Reason for Exam: Screening Comparison: Comparison is made with multiple prior exams, the most recent dated 07/06/2008. Findings: Bilateral CC and MLO views were obtained. This examination was reviewed with the aid of a computer-aided detection system(CAD). The breast tissue density is composed of scattered fibroglandular densities. No significant new findings since the prior mammogram(s). There is benign appearing nodularity in each breast. Procedure Note Alicia Hamilton MD - 07/03/2011 Bilateral Mammogram Reason for Exam: Screening Comparison: Comparison is made with multiple prior exams, the most recentdated 07/06/2008. Findings: Bilateral CC and MLO views were obtained. This examination was reviewed with the aid of a computer-aided detectionsystem(CAD). The breast tissue density is composed of scattered fibroglandulardensities. No significant new findings since the prior mammogram(s). There is benignappearing nodularity in each breast. Kelly Vázquez MD MAMMO ORDERABLES Final Result documented in this encounter Visit Diagnoses Diagnosis Other screening mammogram Other screening mammogram documented in this encounter Additional Health Concerns Infection Onset Date Last Indicated Resolved Time R/O COVID-19 10/13/2019 10/13/2019 10/15/2019 4:00 AM CDT COVID-19 10/13/2019 10/13/2019 11/12/2019 8:08 PM CDT documented as of this encounter Care Teams Workday Senior Associate Relationship Specialty Start Date End Date Judy Souza MD [address] [place] [phone] PCP - General Family Practice 07/14/19 documented as of this encounter
--- OUTSIDE RECORDS SUMMARY | 2024-10-28 13:57 | XMS_ITS | Encounter Summary ---
Author Organization [facility] Address [address] [place] [address] Care Team Providers Care Pool Servicer Name Role Phone Judy Souza MD Primary Care Provider [phone] Reason for Referral * Outpatient Services (Routine) - Closed Specialty Diagnoses / Procedures Referred By Freddy cloud Referred To Contact Radiology Diagnoses Visit for screening mammogram Procedures MAMMO SCRN BILAT 3D AARON W OR WO CAD MAMMO SCREEN BILAT W OR WO CAD CHG SCREENING MAMMOGRAPHY BI 2-VIEW BREAST INC CAD CHG SCREENING DIGITAL BREAST TOMOSYNTHESIS BI Kelly Vázquez MD [address] [place] [address] Phone: tel: fax: [facility] [address] [place] [address] Phone: tel: fax: Referral ID Status Reason Start Date Expiration Date Visits Re quested Visits Authorized [id number] Closed 09/27/2017 10/28/2018 1 1 Encounter Details Date Type Department Care Team (Late st Contact Info) Description 03/13/2018 Ancillary Orders [facility] [address] [place] [phone] Kelly Vázquez MD [address] [place] [address] Visit for screening mammogram Social History Tobacco Use Types Packs/Day Years Used Date Smoking Tobacco: Former Cigarettes 1 20 0 06/18/1984 - 06/18/2004 Smokeless Tobacco: Never Alcohol Use Standard Drinks/Week Comments No 0 (1 standard drink = 0.6 oz pur e alcohol) Comments No Sex and Gender Information Value Date Recorded Sex Assigned at Not on file Legal Sex Female 3:13 AM DIRECTOR PRODUCT SAFETY Gender Identity Not on file Sexual Orientation Not on file Occupation Industry Job Start Date Job End Date Not on file Not on file Not on file Not on file documented as of this encounter Plan of Treatment Scheduled Orders Name Type Priority Associated Diagnoses Orde r Schedule MAMMO SCRN BILAT 3D AARON W OR WO CAD Imaging Routine Visit for screening mammogram 1 Occurrences starting 03/13/2018 until 09/11/2019 documented as of this encounter Visit Diagnoses Diagnosis Visit for screening mammogram Other screening mammogram documented in this encounter Additional Health Concerns Infection Onset Date Last Indicated Resolved Time R/O COVID-19 10/13/2019 10/13/2019 10/15/2019 4:00 AM CDT COVID-19 10/13/2019 10/13/2019 11/12/2019 8:08 PM CDT documented as of this encounter Care Teams Pool Servicer Relationship Specialty Start Date End Date Judy Souza MD [address] [place] [address] PCP - General Family Practice 07/14/19 documented as of this encounter
--- OUTSIDE RECORDS SUMMARY | 2024-10-28 13:57 | XMS_ITS | Encounter Summary ---
Author Organization [facility] Address [address] [place] [address] Care Team Providers Care Equine Manager Name Role Phone Judy Souza MD Primary Care Provider [phone] Reason for Referral * Outpatient Services (Routine) - Closed Specialty Diagnoses / Procedures Referred By Contannamarie t Referred To Contact Diagnoses Irregular menstrual cycle Procedures US PELVIC TRANSVAGINAL Kelly Vázquez MD [address] [place] [phone] Phone: tel: fax: Referral ID Status Reason Start Date Expiration Date Visits Re quested Visits Authorized [id number] Closed 03/15/2011 03/14/2012 1 1 UNICATIONS ENGINEERING TECHNICIAN Encounter Details Date Type Department Care Team (Late st Contact Info) Description 03/15/2011 Ancillary Orders [facility] [place] [address] [place] [phone] Kelly Vázquez MD [address] [place] [address] Irregular menstrual cycle Social History Tobacco Use Types Packs/Day Years Used Date Smoking Tobacco: Former Smokeless Tobacco: Never Alcohol Use Standard Drinks/Week Comments No 0 (1 standard drink = 0.6 oz pur e alcohol) Comments No Sex and Gender Information Value Date Recorded Sex Assigned at Not on file Legal Sex Female 3:13 AM COMMUNICATIONS ENGINEERING TECHNICIAN Gender Identity Not on file Sexual Orientation Not on file Occupation Industry Job Start Date Job End Date Not on file Not on file Not on file Not on file documented as of this encounter Plan of Treatment Not on file documented as of this encounter Results * US PELVIC TRANSVAGINAL (03/15/2011 9:00 AM COMMUNICATIONS ENGINEERING TECHNICIAN) Anatomical Region Laterality Modality Pelvis Ultrasound Impressions 03/16/2011 12:31 PM COMMUNICATIONS ENGINEERING TECHNICIAN : Uterine leiomyomata Endometrial polyp COMMENTS: Two intracavitary masses identified. One is hyperechoic and favors polyp. The other has an appearance that favors leiomyoma. No prior METALIZING MACHINE OPERATOR ultrasound examinations available for comparison. Tech: Shwetha Venegas RDMS Narrative 03/16/2011 12:31 PM COMMUNICATIONS ENGINEERING TECHNICIAN GYNECOLOGIC ULTRASOUND REPORT Requesting Physician: Kelly Vázquez MD Indication: Irregular menses Last Menstrual Period: 1 month ago Pertinent History: Exam Type(s): Transabdominal and Endovaginal UTERUS and PELVIS Longitudinal A/P Transverse Volume 9.5 cm 4.9 cm 5.6 cm 136.3 mL Position: anteverted Appearance: The uterus appears normal in size, shape and contour. external contour is regular Myometrium: Appears homogeneous Endometrium: endometrial stripe measures 1.1 cm Findings: Intracavitary hyperechoic mass 1.2 x 0.7 cm. Leiomyomata: 1. Left submucosal 0.9 cm 2. Intracavitary 0.9 x 0.6 cm. OVARIES and ADNEXA Length Diameter 1 Diameter 2 Volume Right: 3.2 cm 1.7 cm 2.1 cm 5.9 mL Left: 2.1 cm 2.2 cm 1.7 cm 4.1 mL Findings: Right ovary unilocular cyst 1.3 x 1.6 x 1.4 cm. Normal appearing left ovary Procedure Note Kashif Vázquez II, MD - 03/16/2011 GYNECOLOGIC ULTRASOUND REPORT Requesting Physician: Kelly Vázquez MD Indication: Irregular menses Last Menstrual Period: 1 month ago Pertinent History: Exam Type(s): Transabdominal and Endovaginal UTERUS and PELVIS Longitudinal A/P Transverse Volume 9.5 cm 4.9 cm 5.6 cm 136.3 mL Position: anteverted Appearance: The uterus appears normal in size, shape and contour. external contour is regular Myometrium: Appears homogeneous Endometrium: endometrial stripe measures 1.1 cm Findings: Intracavitary hyperechoic mass 1.2 x 0.7 cm. Leiomyomata: 1. Left submucosal 0.9 cm 2. Intracavitary 0.9 x 0.6 cm. OVARIES and ADNEXA Length Diameter 1 Diameter 2 Volume Right: 3.2 cm 1.7 cm 2.1 cm 5.9 mL Left: 2.1 cm 2.2 cm 1.7 cm 4.1 mL Findings: Right ovary unilocular cyst 1.3 x 1.6 x 1.4 cm. Normal appearing left ovary IMPRESSION: Uterine leiomyomata Endometrial polyp COMMENTS: Two intracavitary masses identified. One is hyperechoic and favors polyp.The other has an appearance that favors leiomyoma. No prior METALIZING MACHINE OPERATOR ultrasound examinations available for comparison. Tech: Shwetha Venegas [facility] us Kelly Vázquez MD US ORDERABLES Final Result documented in this encounter Visit Diagnoses Diagnosis Irregular menstrual cycle documented in this encounter Additional Health Concerns Infection Onset Date Last Indicated Resolved Time R/O COVID-19 10/13/2019 10/13/2019 10/15/2019 4:00 AM CDT COVID-19 10/13/2019 10/13/2019 11/12/2019 8:08 PM CDT documented as of this encounter Care Teams Equine Manager Relationship Specialty Start Date End Date Judy Souza MD [address] [place] [id number] PCP - General Family Practice 07/14/19 documented as of this encounter
[2024-10-28 14:21] LABS: Glucose Urine UA Negative (Normal); Nitrate Urine Negative (Negative); Specific Gravity, Urine 1.018 (1.005-1.030)
[2024-10-28 14:24] LABS: Add Urine Microscopic? YES
[2024-10-28 14:46] LABS: Hematocrit 45.8 % (36-47); Hemoglobin 15.30 g/dL (11.27-16.99); Mean Corpuscular HGB Conc 33.4 g/dL (30-55); Mean Corpuscular Hemoglobin 27.9 pg (27-33); Mean Corpuscular Volume 83.6 fl (85-98); Nucleated Red Blood Cells % 0 %; Platelet Count 312 10^3/cmm (157-399); Red Blood Count 5.48 10^6/uL (3.85-5.65); White Blood Count 12.37 10^3/uL (3.29-11.43)
[2024-10-28 15:06] LABS: Alanine Aminotransferase 20 U/L (0-33); Albumin Level 4.3 g/dL (3.5-5.2); Alkaline Phosphatase 88 U/L (35-105); Anion Gap 17.7 (5-19); Aspartate Amino Transferase 23 U/L (0-32); Blood Urea Nitrogen 16 mg/dL (8-23); Calcium 9.4 mg/dL (8.5-10.5); Carbon Dioxide 24 mmol/L (22-29); Chloride 99 mmol/L (98-107); Creatinine Clr Calc Pharmacy 122.1155; Globulin 3.4 g/dL (1.3-4.6); Glucose 121 mg/dL (65-115); Lipase 26 U/L (13-60); Osmolality Calculated 286 mOsm/kg (285-295); Potassium 3.7 mmol/L (3.5-5.1); Sodium 137 mmol/L (136-145); Total Protein 7.7 g/dL (6.6-8.7)
[2024-10-28 15:48] VITALS: BP 161/95
--- NOTE | 2024-10-28 15:50 | CTR_ITS ---
PROCEDURE INFORMATION: Exam: CT Abdomen And Pelvis Without Contrast Exam date and time: 10/28/2024 3:54 PM Age: 64 years old Clinical indication: Abdominal pain; Flank; Left; Prior surgery; Surgery date: 6+ months; Surgery type: Appy; Additional info: L back pain w/radiation to groin TECHNIQUE: Imaging protocol: Computed tomography of the abdomen and pelvis without contrast. Radiation optimization: All CT scans at this facility use at least one of these dose optimization techniques: automated exposure control; mA and/or kV adjustment per patient size (includes targeted exams where dose is matched to clinical indication); or iterative reconstruction. COMPARISON: CT abdomen pelvis w con* [id number] 05/05/2024 2:44 PM RADIATION DOSE METRICS: Total DLP (mGy-cm): 955.49 FINDINGS: Lower chest: Heart size normal . Lungs are clear. Liver: Normal. No mass. Small calcified granuloma Gallbladder and biliary ducts: Normal. No calcified stones. No ductal dilation. Pancreas: Normal. No ductal dilation. Spleen: Normal. No splenomegaly. Small calcified. Adrenal glands: Normal. No mass. Kidneys and ureters: 2.6 cm exophytic cyst lateral kidney with CT number of 13 HU. 3.6 mm low-density lesion with CT number of 10.7 HU upper left kidney. This consistent with cyst. No follow-up imaging of these recommended. No hydronephrosis Benign simple renal cyst requiring no follow-up. (Reference: Leana) References: Leana PARKER, et al. Bosniak Classification of Cystic Renal Masses, Version 2019: An Update Proposal and Needs Assessment. Radiology. 2019;292(2):475-488. Stomach and bowel: Mild increased fluid in the stomach may represent recent ingestion or delayed gastric emptying Some mild increased fluid small bowel with small air-fluid levels may represent a mild nonspecific ileus. Colon shows no distension wall thickening. No significant stool load. Appendix: History of appendectomy Intraperitoneal space: Unremarkable. No free air. No significant fluid collection. Vasculature: Unremarkable. No abdominal aortic aneurysm. Lymph nodes: Unremarkable. No enlarged lymph nodes. Urinary bladder: Anterior wall measures up to 7.5 mm thickness mildly thickened. Maybe some mild perivesical stranding. Correlate for UTI Reproductive: Unremarkable as visualized. Bones/joints: [id number] changes. Schmorl's nodes deformities multiple levels . Vacuum disc phenomenon several levels Soft tissues: Small umbilical hernia containing fat. CT/CT abdomen pelvis wo con [id number] IMPRESSION: 1. Small increased fluid in the stomach may represent recent ingestion or delayed emptying. Maybe mild small ileus. 2. Left renal cysts. No follow-up imaging. 3. Mild thickening urinary bladder. Correlate for. 4. Degenerative changes and Schmorl's nodes deformities lumbar and visualized thoracic. 5. Small umbilical hernia
--- NOTE | 2024-10-28 15:53 | W.ED.BACK ---
HPI - Back Pain/Injury General: Chief Complaint: Back Pain/Injury Stated Complaint: pain all over n/v Time Seen by Provider: 10/28/24 15:39 History of Present Illness: Patient is a 64-year-old female presenting with a chief complaint of acute left back pain, atraumatic in nature with radiation to the left thigh/groin. Patient states that at times, the pain is 10 out of 10. She has not had a fever and denies chest pain, shortness of breath or cough. Patient states that she has had nausea and vomiting due to severe pain. She denies dysuria, hematuria and had a normal bowel movement within the last day or 2 without blood. No abnormal vaginal discharge, bleeding or pelvic pain. Patient has a history of appendectomy but still has her gallbladder. She does not have a history of kidney stones. She denies any lower extremity numbness, weakness, loss of bowel or bladder control or saddle anesthesia. She was seen at urgent care and prescribed baclofen which did not help. Patient has a history of high blood pressure. Related Data Home Medications ?Medication ?Instructions ?Recorded ?Confirmed hydrochlorothiazide 12.5 mg tablet 12.5 mg PO DAILY 07/12/21 10/27/24 multivitamin 1 tab PO DAILY 07/12/21 10/27/24 trospium 60 mg capsule,extended 60 mg PO DAILY 05/05/24 10/27/24 release 24 hr sucralfate 1 gram tablet 1 g PO TID 05/19/24 10/27/24 alprazolam 0.25 mg tablet (Xanax) 0.25 mg PO DAILY 10/27/24 10/27/24 Previous Rx's ?Medication ?Instructions ?Recorded baclofen 5 mg tablet 5 mg PO TID PRN muscle spasm #14 10/27/24 tabs ketorolac 10 mg tablet 10 mg PO Q6H PRN pain 5 days #20 10/28/24 tabs methocarbamol 500 mg tablet 1,000 mg (2 x 500 mg) PO TID PRN 10/28/24 muscle pain and spasm #30 tabs nitrofurantoin 100 mg PO BID 5 days #10 caps 10/28/24 monohydrate/macrocrystals 100 mg capsule (Macrobid) Allergies Allergy/AdvReac Type Severity Reaction Status Date / Time Corticosteroids Allergy Unknown Verified 10/28/24 13:57 (Glucocorticoids) montelukast (From Singulair) Allergy unnknow Verified 10/28/24 13:57 Penicillins Allergy Unknown Verified 10/28/24 13:57 [facility] ED PFSH: Medical History (Updated 10/28/24 @ 17:16 by Alicia Tiwari MD) Anxiety Fatigue Family History Mother Anesthesia complication Lung disease Father Bleeding disorder CAD (coronary artery disease) Diabetes Family/Other CAD (coronary artery disease) Cancer Chronic kidney disease (CKD) Stroke Suicide Diabetes Grandfather Dementia Denies family history of Clotting disorder Social History Smoking and tobacco/nicotine status: never used tobacco/nicotine Female Reproductive History: Spontaneous abortions: No Physical Exam Narrative: EXAM NARRATIVE: Vitals were reviewed. Patient is alert, oriented and hemodynamically stable. Patient has clear lung sounds bilaterally, normal heart sounds. Abdomen is soft, nondistended nontender to palpation. No CVA tenderness with percussion of the flanks. Patient is moving all extremities without difficulty and is ambulatory. Patient does have pain with palpation of the left low back paraspinal musculature but no tenderness with palpation and percussion of the midline C, T or L-spine. Course Vital Signs: Vital signs: Vital Signs Temperature 98.1 F 10/28/24 13:51 Pulse Rate 93 10/28/24 13:51 Blood Pressure 142/98 10/28/24 16:02 Pulse Oximetry 95 10/28/24 16:02 Oxygen Delivery Me thod Room Air 10/28/24 16:02 MDM - Back Pain/Injury Medical Decision Making 64-year-old female with a chief complaint of acute atraumatic left low back pain with radiation to the left gluteus/thigh and groin. Differential diagnosis including but limited to, urinary tract infection, pyelonephritis, kidney stone, diverticulitis, sciatica, lumbar back strain, other. On initial exam she cynically stable and does not have any red flags on physical exam in regards to back pain. Her pain is not midline. She was evaluate CBC, CMP, lipase, UA and CT of the abdomen pelvis without IV contrast. She was treated with IM Toradol, p.o. Tylenol and p.o. Valium. Patient has a mildly elevated white blood cell count which is nonspecific. She does not have any actionable electrolyte abnormalities and has a normal lipase. UA does show 1+ leuk esterase and 10-20 white blood cells though the sample is somewhat contaminated. She is not reporting urinary symptoms; but CT does show mild thickening of the urinary bladder, will treat this as cystitis. On reassessment, patient is discomfort was quite relieved with Toradol, Valium and Tylenol and her pain is now 0-7. Suspect that the back pain is secondary to musculoskeletal component. At this time, I do not feel it is consistent with sciatica, spinal compression, kidney stone or pyelonephritis. She is appropriate for outpatient management. Patient was counseled on supportive care at home, given return precautions and was discharged in stable condition. Labs 10/28/24 14:39 10/28/24 14:39 Radiology Impressions Abdomen/Pelvis CT 10/28/24 15:50 IMPRESSION: 1. Small increased fluid in the stomach may represent recent ingestion or delayed emptying. Maybe mild small ileus. 2. Left renal cysts. No follow-up imaging. 3. Mild thickening urinary bladder. Correlate for. 4. Degenerative changes and Schmorl's nodes deformities lumbar and visualized thoracic. 5. Small umbilical hernia Laboratory Results WBC 12.37 10^3/uL (3.29-11.43) H 10/28/24 14:39 RBC 5.48 10^6/uL (3.85-5.65) 10/28/24 14:39 Hgb 15.30 g/dL (11.27-16.99) 10/28/24 14:39 Hct 45.8 % (36-47) 10/28/24 14:39 MCV 83.6 fl (85-98) L 10/28/24 14:39 MCH 27.9 pg (27-33) 10/28/24 14:39 MCHC 33.4 g/dL (30-55) 10/28/24 14:39 RDW 13.5 % (12.1-15.1) 10/28/24 14:39 Plt Count 312 10^3/cmm (157-399) 10/28/24 14:39 MPV 8.6 fL (7.4-10.4) 10/28/24 14:39 Neut % (Auto) 79.9 % 10/28/24 14:39 Lymph % (Auto) 14.2 % 10/28/24 14:39 Ida % (Auto) 5.0 % 10/28/24 14:39 Eos % (Auto) 0.0 % 10/28/24 14:39 Baso % (Auto) 0.3 % 10/28/24 14:39 Neut # (Auto) 9.87 10^3/uL (1.8-7.7) H 10/28/24 14:39 Lymph # (Auto) 1.8 10^3/uL (0.8-4.8) 10/28/24 14:39 Ida # (Auto) 0.6 10^3/uL (0.2-0.9) 10/28/24 14:39 Eos # (Auto) 0.0 10^3/uL (0.0-0.8) 10/28/24 14:39 Baso # (Auto) 0.0 10^3/uL (0.0-0.1) 10/28/24 14:39 Nucleated RBC % (auto) 0 % 10/28/24 14:39 Nucleated RBCs # 0.0 /100WBC 10/28/24 14:39 Sodium 137 mmol/L (136-145) 10/28/24 14:39 Potassium 3.7 mmol/L (3.5-5.1) 10/28/24 14:39 Chloride 99 mmol/L (98-107) 10/28/24 14:39 Carbon Dioxide 24 mmol/L (22-29) 10/28/24 14:39 Anion Gap 17.7 (5-19) 10/28/24 14:39 BUN 16 mg/dL (8-23) 10/28/24 14:39 Creatinine 0.5 mg/dL (0.5-0.9) 10/28/24 14:39 GFR Calculation 124.2 mL/min (90-130) 10/28/24 14:39 Glucose 121 mg/dL (65-115) H 10/28/24 14:39 Calculated Osmolality 286 mOsm/kg (285-295) 10/28/24 14:39 Calcium 9.4 mg/dL (8.5-10.5) 10/28/24 14:39 Total Bilirubin 0.4 mg/dL (0.15-1.2) 10/28/24 14:39 AST 23 U/L (0-32) 10/28/24 14:39 ALT 20 U/L (0-33) 10/28/24 14:39 Alkaline Phosphatase 88 U/L (35-105) 10/28/24 14:39 Total Protein 7.7 g/dL (6.6-8.7) 10/28/24 14:39 Albumin 4.3 g/dL (3.5-5.2) 10/28/24 14:39 Globulin 3.4 g/dL (1.3-4.6) 10/28/24 14:39 Lipase 26 U/L (13-60) 10/28/24 14:39 Urine Color Yellow (Yellow) 10/28/24 14:07 Urine Appearance Cloudy (CLEAR) A 10/28/24 14:07 Urine pH 6.5 (5-7) 10/28/24 14:07 Ur Specific [place] 1.018 (1.005-1.030) 10/28/24 14:07 Urine Protein Trace (Negative) A 10/28/24 14:07 Urine Glucose (UA) Negative (Normal) 10/28/24 14:07 Urine Ketones 1+ (Negative) H 10/28/24 14:07 Urine Blood Non-haemolysed trace (Negative) 10/28/24 14:07 Urine Nitrate Negative (Negative) 10/28/24 14:07 Urine Bilirubin Negative (Negative) 10/28/24 14:07 Urine Urobilinogen 1.0 mg/dL (Negative) 10/28/24 14:07 Ur Leukocyte Esterase 1+ (Negative) A 10/28/24 14:07 Urine RBC 3-5 /hpf (0-2) 10/28/24 14:07 Urine WBC 11-20 /hpf (0-5) H 10/28/24 14:07 Ur Squamous Epith Cells 6-10 /hpf (0-5) 10/28/24 14:07 Amorphous Sediment Not Reportable 10/28/24 14:07 Urine Bacteria None seen /hpf (NONE) 10/28/24 14:07 Hyaline Casts 0.40 /lpf 10/28/24 14:07 All radiology interpretation(s) finalized by discharge Discharge Plan Discharge Patient Disposition: Home Clinical Impression: Cystitis Lumbar back sprain Qualifiers: Encounter type: initial encounter Qualified Code(s): S33.5XXA - Sprain of ligaments of lumbar spine, initial encounter Condition: Stable Prescriptions: New nitrofurantoin monohyd/m-cryst [Macrobid] 100 mg capsule 100 mg PO BID 5 Days Qty: 10 0RF Rx Instructions: must administer with a meal/food methocarbamol 500 mg tablet 1,000 mg PO TID PRN (Reason: muscle pain and spasm) Qty: 30 0RF ketorolac 10 mg tablet 10 mg PO Q6H PRN (Reason: pain) 5 Days Qty: 20 0RF No Action hydrochlorothiazide 12.5 mg tablet 12.5 mg PO DAILY multivitamin Tablet 1 tab PO DAILY alprazolam [Xanax] 0.25 mg tablet 0.25 mg PO DAILY baclofen 5 mg tablet 5 mg PO TID PRN (Reason: muscle spasm) Qty: 14 0RF sucralfate 1 gram Tablet 1 g PO TID trospium 60 mg Capsule,Extended Release 24hr 60 mg PO DAILY Rx Instructions: must be taken on empty stomach at least 1 hour before a meal/food with water only Discharge Orders: Discharge ED (Routine); Ordered 10/28/24 Ordered By: Alicia Tiwari Patient Instructions: Urinary Tract Infection in Women (DC), Acute Low Back Pain (ED), Opioid Safety, Pain Management, Patient Portal & Mark Instructions Activity Restrictions/Additional Instructions: Please continue to monitor your condition closely at home. Take Ibuprofen 400mg and Tylenol 500-1000mg every six hours for pain and inflammation. You may also try a muscle relaxer, Robaxin, for muscle pain and spasm. DO not take together with Baclofen; try one or the other. Start your antibiotics for urinary tract infection. Over the counter Lidocaine patches, gentle range of motion exercises may also provide relief. If your condition worsens or additional concerns arise, please return promptly to the emergency department for reassessment. Follow up with your primary care doctor in one week. Print Language: Welsh Coding Level of Care Code ED Roofer Helper for Kai Clarke
[2024-10-28 16:02] VITALS: BP 142/98; O2SAT 95
[2024-10-28 17:25] VITALS: BP 146/93; PULSE 76; RESP 17; O2SAT 98
== END 2024-10-28 17:41 | disposition home or self-care (01) ==
PROVIDERS: Emergency Medicine; Emergency Provider Emergency Medicine
DX: N30.90 Cystitis, unspecified without hematuria (principal); S33.5XXA Sprain of ligaments of lumbar spine, initial encounter; I10 Essential (primary) hypertension; X58.XXXA Exposure to other specified factors, initial encounter
CPT/HCPCS: 36415; 74176; 80053; 81001; 83690; 85025; 96372; 99284; J1885; J9999

== ENCOUNTER 2024-11-27 15:03 | Outpatient (RCR) | payer OTHER, SELFPAY | END 2024-12-26 23:59 | disposition home or self-care (01) | LOC: MPT 15:03 | PROVIDERS: Visit Provider Nurse Practitioner Family | DX: M54.9 Dorsalgia, unspecified (principal) | CPT/HCPCS: 97110; G0283 ==